=== PATIENT | female | born 1945 | race Hispanic/Latino ===

== ENCOUNTER 2017-03-09 03:14 | Emergency (ER) | payer MEDICARE, MEDICAID ==
[2017-03-09 03:30] VITALS: PULSE 76; RESP 18; TEMP 98; O2SAT 99
--- NOTE | 2017-03-09 03:59 | ED PDOC ---
HPI: General Adult Time Seen by Provider: 03/09/17 03:36 Chief Complaint (Nursing): Cough, Cold, Congestion History Per: Patient Additional Complaint(s): Pt. states for > 1 week she's had a cough productive of green sputum initially which has since become dry. Also reports having nasal congestion initially which is no longer present. Pt. states she believes she became sick as she slept close an air conditioner at her [facility] > 1 week ago. Denies sick contacts , recent travel, hemoptysis, chest pain, fever, palpitations. Past Medical History Reviewed: Historical Data, Nursing Documentation, Vital Signs Vital Signs: Last Vital Signs Temp 98.0 F 03/09/17 03:23 Pulse 76 03/09/17 03:23 Resp 18 03/09/17 03:23 BP 172/89 H 03/09/17 04:27 Pulse Ox 99 03/09/17 04:00 - Medical History PMH: HTN, Malignancy (h/o breast CA), Peripheral Edema (Chronic BLE edema) - Surgical History Other surgeries: R lumpectomy - Family History Family History: States: Unknown Family Hx - Home Medications Home Medications: Ambulatory Orders Medication Instructions Recorded Ketoconazole 2% Cr [Nizoral] 60 gm TOP BID #0 tube 04/16/14 Furosemide [Lasix] 20 mg PO DAILY #10 tab 07/13/14 Albuterol 0.5% [Albuterol 0.5% 2.5 mg IH Q6H PRN #3 neb 07/16/14 Inhal Shakila (2.5 mg/0.5 ml) UD] Azithromycin [Zithromax Z-Andrews] 250 mg PO DAILY #6 tab 07/16/14 Ibuprofen [Motrin] 600 mg PO Q8 PRN #6 tab 07/16/14 Polymyxin/Trimethoprim Sulfate 1 - 2 drop OS Q4 #1 bottle 08/08/14 [Polytrim Ophth Soln] Clotrimazole 1% Cream [Lotrimin 1% 15 applic EXT DAILY #1 tube 02/07/15 CREAM] Naproxen 375 mg PO Q8 PRN #21 tab 06/04/15 diaZEpam [Valium] 5 mg PO Q6 PRN #6 tab 06/04/15 Albuterol HFA [Ventolin HFA 90 2 puff IH Q4 PRN #1 unit 10/13/16 mcg/actuation (8 g)] Azithromycin [Zithromax] 250 mg PO DAILY #6 tab 10/13/16 Methylprednisolone [Medrol Dose 4 mg PO DAILY #1 packet 10/13/16 Pack (21 tabs)] Promethazine HCl/Codeine 5 ml PO TID PRN #30 syrup 10/13/16 [Prometh-Codein 6.25-10 mg/5 ml] Azithromycin [Zithromax] 250 mg PO DAILY #6 tab 03/09/17 Benzonatate [Tessalon Perle] 100 mg PO Q8 PRN #30 capsule 03/09/17 - Allergies Allergies/Adverse Reactions: Allergies Allergy/AdvReac Type Severity Reaction Status Date / Time EGG Allergy RASH Verified 10/13/16 17:04 latex Allergy RASH Verified 10/13/16 17:04 flu vaccine Allergy RASH Uncoded 10/13/16 17:04 Review of Systems ROS Statement: Except As Marked, All Systems Reviewed And Found Negative Respiratory: Positive for: Cough Physical Exam - Reviewed Nursing Documentation Reviewed: Yes Vital Signs Reviewed: Yes - Physical Exam Appears: Positive for: Well, Non-toxic, No Acute Distress Head Exam: Positive for: ATRAUMATIC, NORMAL INSPECTION, NORMOCEPHALIC Skin: Positive for: Normal Color, Warm. Negative for: Rash Eye Exam: Positive for: EOMI, Normal appearance, PERRL ENT: Positive for: Normal ENT Inspection Neck: Positive for: Normal, Painless ROM Cardiovascular/Chest: Positive for: Regular Rate, Rhythm Respiratory: Positive for: CNT, Normal Breath Sounds Gastrointestinal/Abdominal: Positive for: Normal Exam, Bowel Sounds, Soft. Negative for: Tenderness Back: Positive for: Normal Inspection Extremity: Positive for: Normal ROM Neurologic/Psych: Positive for: Alert, Oriented - ECG O2 Sat by Pulse Oximetry: 99 - Radiology X-Ray: Interpreted by Me (CXR) X-Ray Interpretation: No Acute Disease Disposition - Clinical Impression Clinical Impression: Acute bronchitis - Patient ED Disposition Is Patient to be Admitted: No - Disposition Referrals: [facility] [Outside] Disposition: Routine/Home Disposition Time: 04:28 Condition: STABLE Prescriptions: Azithromycin [Zithromax] 250 mg PO DAILY #6 tab Benzonatate [Tessalon Perle] 100 mg PO Q8 PRN #30 capsule PRN Reason: Cough Instructions: Acute Bronchitis (ED) Print Language: BELARUSIAN
[2017-03-09 04:29] VITALS: BP 172/89
--- NOTE | 2017-03-09 09:24 | RAD ---
HISTORY: cough COMPARISON: Chest x-ray performed 10/13/16 TECHNIQUE: Chest PA and lateral FINDINGS: LUNGS: No focal consolidation. Nodular densities are again seen projecting over the left upper lobe and right upper lobe. Additional 11 mm nodular density projects over the left lower lobe, possibly nipple shadow. Please note that chest x-ray has limited sensitivity for the detection of pulmonary masses. PLEURA: No significant pleural effusion identified. No definite pneumothorax . CARDIOVASCULAR: The cardiomediastinal silhouette appears within normal limits of size. OSSEOUS STRUCTURES: Osseous demineralization. Mild degenerative changes. VISUALIZED UPPER ABDOMEN: Unremarkable. OTHER FINDINGS: Postsurgical changes, right breast. IMPRESSION: Bilateral nodular densities are re- identified involving the upper lobes. Additional 11 mm nodular density projects over the left lower lobe, possibly nipple shadow. CT of the chest is recommended for further evaluation if not already performed. This study has been marked for PA review.
== END 2017-03-09 04:36 | disposition home or self-care (01) ==
LOC: H.ER 03:14
DX: J20.9 Acute bronchitis, unspecified (principal); I10 Essential (primary) hypertension; Z85.3 Personal history of malignant neoplasm of breast

== ENCOUNTER 2017-04-05 15:57 | Emergency (ER) | payer MEDICARE, MEDICAID ==
[2017-04-05 16:04] VITALS: BP 159/84; PULSE 86; RESP 20; TEMP 97; O2SAT 98
--- NOTE | 2017-04-05 16:16 | ED PDOC ---
Upper Extremity Pain/Injury Time Seen by Provider: 04/05/17 16:04 Chief Complaint (Nursing): Upper Extremity Problem/Injury Chief Complaint (Provider): right arm pain History Per: Patient History/Exam Limitations: no limitations Onset/Duration Of Symptoms: Days (x2 weeks) Current Symptoms Are (Timing): Still Present Additional Complaint(s): Maryanne Cramer is a 71 year old right hand dominant female who presents to the emergency department with a complaint of dull right arm pain status post bumping into metal door 2 weeks ago. Patient did not seek medical attention at time of incident and declines pain medications in ED today. She is able to bend elbow and wrist but has pain when doing so. She rates current pain as 5/ 10. PMD: Edilberto Son MD Past Medical History Reviewed: Historical Data, Nursing Documentation, Vital Signs Vital Signs: Last Vital Signs Temp 97 F L 04/05/17 16:02 Pulse 86 04/05/17 16:02 Resp 20 04/05/17 16:02 BP 159/84 H 04/05/17 16:02 Pulse Ox 98 04/05/17 16:02 - Medical History PMH: HTN, Malignancy (h/o breast CA) - Surgical History Other surgeries: right lumpectomy, D&C - Family History Family History: States: No Known Family Hx - Living Arrangements Living Arrangements: Alone - Social History Current smoker - smoking cessation education provided: No Alcohol: None Drugs: Denies - Home Medications Home Medications: Ambulatory Orders Medication Instructions Recorded Ketoconazole 2% Cr [Nizoral] 60 gm TOP BID #0 tube 04/16/14 Furosemide [Lasix] 20 mg PO DAILY #10 tab 07/13/14 Albuterol 0.5% [Albuterol 0.5% 2.5 mg IH Q6H PRN #3 neb 07/16/14 Inhal Shakila (2.5 mg/0.5 ml) UD] Azithromycin [Zithromax Z-Andrews] 250 mg PO DAILY #6 tab 07/16/14 Ibuprofen [Motrin] 600 mg PO Q8 PRN #6 tab 07/16/14 Polymyxin/Trimethoprim Sulfate 1 - 2 drop OS Q4 #1 bottle 08/08/14 [Polytrim Ophth Soln] Clotrimazole 1% Cream [Lotrimin 1% 15 applic EXT DAILY #1 tube 02/07/15 CREAM] Naproxen 375 mg PO Q8 PRN #21 tab 06/04/15 diaZEpam [Valium] 5 mg PO Q6 PRN #6 tab 06/04/15 Albuterol HFA [Ventolin HFA 90 2 puff IH Q4 PRN #1 unit 10/13/16 mcg/actuation (8 g)] Azithromycin [Zithromax] 250 mg PO DAILY #6 tab 10/13/16 Methylprednisolone [Medrol Dose 4 mg PO DAILY #1 packet 10/13/16 Pack (21 tabs)] Promethazine HCl/Codeine 5 ml PO TID PRN #30 syrup 10/13/16 [Prometh-Codein 6.25-10 mg/5 ml] Azithromycin [Zithromax] 250 mg PO DAILY #6 tab 03/09/17 Benzonatate [Tessalon Perle] 100 mg PO Q8 PRN #30 capsule 03/09/17 - Allergies Allergies/Adverse Reactions: Allergies Allergy/AdvReac Type Severity Reaction Status Date / Time EGG Allergy RASH Verified 04/05/17 16:01 latex Allergy RASH Verified 04/05/17 16:01 flu vaccine Allergy RASH Uncoded 04/05/17 16:01 Review of Systems ROS Statement: Except As Marked, All Systems Reviewed And Found Negative Cardiovascular: Negative for: Chest Pain Musculoskeletal: Positive for: Arm Pain (right arm pain s/p injury 2 weeks ago) Neurological: Negative for: Headache, Dizziness Physical Exam - Reviewed Nursing Documentation Reviewed: Yes Vital Signs Reviewed: Yes - Physical Exam Appears: Positive for: Well, Non-toxic, No Acute Distress Skin: Positive for: Normal Color. Negative for: Rash Eye Exam: Positive for: Normal appearance, EOMI, PERRL Neck: Positive for: Painless ROM. Negative for: Pain On Movement Of Neck Cardiovascular/Chest: Positive for: Regular Rate, Rhythm Respiratory: Positive for: Normal Breath Sounds. Negative for: Respiratory Distress Extremity: Positive for: Other (Tenderness to right elbow and wrist with full rom of both, strong right hand barrel bander, full rom right shoulder, normal distal sensation) Neurologic/Psych: Positive for: Alert, Oriented - ECG O2 Sat by Pulse Oximetry: 98 (RA) Pulse Ox Interpretation: Normal - Other Rad right elbow and wrist x-ray X-Ray: Interpreted by Me, Viewed By Me X-Ray Interpretation: no fx, no dis Medical Decision Making Medical Decision Making: Initial Impression: Right arm injury Initial Plan: * Xray elbow (right) * Xray wrist (right) Pain meds declined. X-ray is negative. Advised tylenol prn pain. Patient was referred to clinic for follow up. Scribe Attestation: Documented by Isa Ford, acting as a scribe for Theresa Soria PA-C. Provider Scribe Attestation: All medical record entries made by the Scribe were at my direction and personally dictated by me. I have reviewed the chart and agree that the record accurately reflects my personal performance of the history, physical exam, medical decision making, and the department course for this patient. I have also personally directed, reviewed, and agree with the discharge instructions and disposition. Disposition - Clinical Impression Clinical Impression: Arm contusion - Patient ED Disposition Is Patient to be Admitted: No Counseled Patient/Family Regarding: Studies Performed, Diagnosis, Need For Followup - Disposition Referrals: [facility] [Outside] Disposition: Routine/Home Disposition Time: 17:00 Condition: STABLE Additional Instructions: Tylenol as needed for pain. Follow up in 2-3 days with clinic. Instructions: Arm Pain (ED), Contusion in Adults (ED) Forms: [employer] (Azeri)
--- NOTE | 2017-04-05 20:13 | RAD ---
HISTORY: trauma COMPARISON: No prior FINDINGS: BONES: Normal. No fracture. JOINTS: Normal. No osteoarthritis. SOFT TISSUE: Normal. OTHER FINDINGS: None . IMPRESSION: Normal Bone Xray.
--- NOTE | 2017-04-08 11:36 | RAD ---
PROCEDURE: Right wrist dated 04/05/2017 HISTORY: Trauma COMPARISON: None. FINDINGS: BONES: No evidence of acute displaced fracture. . The osseous structures intact. No cortical destructive changes. JOINTS: No dislocation. Joint spaces preserved. SOFT TISSUES: Normal. OTHER FINDINGS: None. IMPRESSION: No evidence of acute displaced fracture nor dislocation. If symptoms persist or occult fracture suspected clinically recommend repeat radiographs in 5-10 days as most fractures should become radiographically evident in this timeframe. Alternately, MRI could be performed if pain persists.
== END 2017-04-05 17:15 | disposition home or self-care (01) ==
LOC: H.ER 15:57
DX: S40.021A Contusion of right upper arm, initial encounter (principal); W22.8XXA Striking against or struck by other objects, initial encounter; I10 Essential (primary) hypertension; Z85.3 Personal history of malignant neoplasm of breast

== ENCOUNTER 2017-07-15 03:20 | Emergency (ER) | payer MEDICARE, MEDICAID ==
[2017-07-15 03:42] VITALS: BP 145/84; PULSE 89; RESP 17; TEMP 98; O2SAT 97
[2017-07-15] MEDS: Albuterol 0.083% Inhal Sol (2.5 mg/3 mL) UD INH ONE (04:45)
--- NOTE | 2017-07-15 04:51 | ED PDOC ---
HPI: General Adult Time Seen by Provider: 07/15/17 03:40 Chief Complaint (Nursing): Flu-like Symptoms Chief Complaint (Provider): Cough, History Per: Patient History/Exam Limitations: no limitations Onset/Duration Of Symptoms: Days (2 days ago) Current Symptoms Are (Timing): Still Present Additional Complaint(s): Maryanne Cramer is a 71 y/o homeless female with a past medical history of hypertension and chronic bilateral edema, who presents to the ED complaining of a cough, right eye pain and redness, that began 2 days ago. Patient denies of fever, vomiting and diarrhea. Past Medical History Reviewed: Historical Data, Nursing Documentation, Vital Signs Vital Signs: Last Vital Signs Temp 98.0 F 07/15/17 03:39 Pulse 89 07/15/17 03:39 Resp 17 07/15/17 03:39 BP 145/84 07/15/17 03:39 Pulse Ox 97 07/15/17 05:12 - Medical History PMH: HTN, Malignancy (h/o breast CA), Peripheral Edema (Chronic BLE edema) - Surgical History Surgical History: No Surg Hx - Family History Family History: States: Unknown Family Hx - Living Arrangements Living Arrangements: Alone - Home Medications Home Medications: Ambulatory Orders Medication Instructions Recorded Ketoconazole 2% Cr [Nizoral] 60 gm TOP BID #0 tube 04/16/14 Furosemide [Lasix] 20 mg PO DAILY #10 tab 07/13/14 Albuterol 0.5% [Albuterol 0.5% 2.5 mg IH Q6H PRN #3 neb 07/16/14 Inhal Shakila (2.5 mg/0.5 ml) UD] Azithromycin [Zithromax Z-Andrews] 250 mg PO DAILY #6 tab 07/16/14 Ibuprofen [Motrin] 600 mg PO Q8 PRN #6 tab 07/16/14 Polymyxin/Trimethoprim Sulfate 1 - 2 drop OS Q4 #1 bottle 08/08/14 [Polytrim Ophth Soln] Clotrimazole 1% Cream [Lotrimin 1% 15 applic EXT DAILY #1 tube 02/07/15 CREAM] Naproxen 375 mg PO Q8 PRN #21 tab 06/04/15 diaZEpam [Valium] 5 mg PO Q6 PRN #6 tab 06/04/15 Albuterol HFA [Ventolin HFA 90 2 puff IH Q4 PRN #1 unit 10/13/16 mcg/actuation (8 g)] Azithromycin [Zithromax] 250 mg PO DAILY #6 tab 10/13/16 Methylprednisolone [Medrol Dose 4 mg PO DAILY #1 packet 10/13/16 Pack (21 tabs)] Promethazine HCl/Codeine 5 ml PO TID PRN #30 syrup 10/13/16 [Prometh-Codein 6.25-10 mg/5 ml] Azithromycin [Zithromax] 250 mg PO DAILY #6 tab 03/09/17 Benzonatate [Tessalon Perle] 100 mg PO Q8 PRN #30 capsule 03/09/17 Azithromycin [Zithromax] 250 mg PO DAILY #6 tab 07/15/17 Tobramycin 0.3% [Tobrex 0.3% Ophth 1 appl OD QID #1 tube 07/15/17 Oint] - Allergies Allergies/Adverse Reactions: Allergies Allergy/AdvReac Type Severity Reaction Status Date / Time EGG Allergy RASH Verified 04/05/17 16:01 latex Allergy RASH Verified 04/05/17 16:01 flu vaccine Allergy RASH Uncoded 04/05/17 16:01 Review of Systems Constitutional: Negative for: Fever Eyes: Positive for: Pain, Redness, Other (Watery) Respiratory: Positive for: Cough Gastrointestinal: Negative for: Vomiting, Diarrhea Physical Exam - Reviewed Nursing Documentation Reviewed: Yes Vital Signs Reviewed: Yes - Physical Exam Appears: Positive for: Non-toxic, No Acute Distress Head Exam: Positive for: ATRAUMATIC, NORMOCEPHALIC Skin: Positive for: Normal Color, Warm Eye Exam: Positive for: EOMI, PERRL, Conjunctival injection (right eye), Other ( right eye erythema) Neck: Positive for: Normal, Supple Cardiovascular/Chest: Positive for: Regular Rate, Rhythm. Negative for: Murmur Respiratory: Positive for: Normal Breath Sounds. Negative for: Respiratory Distress Gastrointestinal/Abdominal: Positive for: Normal Exam, Soft. Negative for: Tenderness Back: Positive for: Normal Inspection Extremity: Positive for: Other (chronic lower extremity edema) Neurologic/Psych: Positive for: Alert, Oriented. Negative for: Motor/Sensory Deficits - ECG O2 Sat by Pulse Oximetry: 97 (RA) Pulse Ox Interpretation: Normal Medical Decision Making Medical Decision Making: Time: 04:36 Impression: Conjunctivitis in right eye with cough Plan: --albuterol 2.5 mg INH --Peak Flow Pre/Post TX -- -- Reassess: --Patient is feeling better and going to be sent home with prescription antibiotics and cream to combat the Conjunctivitis in the right eye. Scribe Attestation: Documented by Kevon Brito, acting as a scribe for Sheng Brown MD. Provider Scribe Attestation: All medical record entries made by the Scribe were at my direction and personally dictated by me. I have reviewed the chart and agree that the record accurately reflects my personal performance of the history, physical exam, medical decision making, and the department course for this patient. I have also personally directed, reviewed, and agree with the discharge instructions and disposition. Disposition - Clinical Impression Clinical Impression: Viral infection, Conjunctivitis - Patient ED Disposition Is Patient to be Admitted: No Counseled Patient/Family Regarding: Studies Performed, Diagnosis, Need For Followup - Disposition Disposition: Routine/Home Disposition Time: 04:15 Condition: IMPROVED Additional Instructions: follow up with your primary doctor in 1-2 days return to the ED with any worsening or concerning symptoms Prescriptions: Azithromycin [Zithromax] 250 mg PO DAILY #6 tab Tobramycin 0.3% [Tobrex 0.3% Ophth Oint] 1 appl OD QID #1 tube Instructions: Conjunctivitis (ED) Forms: [employer] (Japanese)
== END 2017-07-15 05:18 | disposition home or self-care (01) ==
LOC: H.ER 03:20
DX: B34.9 Viral infection, unspecified (principal); H10.9 Unspecified conjunctivitis; I10 Essential (primary) hypertension; Z59.0 Homelessness; Z85.3 Personal history of malignant neoplasm of breast

== ENCOUNTER 2018-09-03 04:45 | Emergency (ER) | payer MEDICARE, MEDICAID ==
--- NOTE | 2018-09-03 05:47 | ED PDOC ---
HPI: General Adult Time Seen by Provider: 09/03/18 04:51 Chief Complaint (Nursing): Medical Clearance Chief Complaint (Provider): Medical Clearance History Per: Patient History/Exam Limitations: no limitations Additional Complaint(s): 73 y/o female with history of hypertension presents to the ED because she is cold. Patient is homeless and was made to register when she would not vacate ED waitiong room. She has no active medical complaints. Patient is requesting refill of her blood pressure medication but is unsure of the name of the medicine. Past Medical History Reviewed: Historical Data, Nursing Documentation, Vital Signs Vital Signs: Last Vital Signs Temp 97.6 F 09/03/18 04:48 Pulse 91 H 09/03/18 04:48 Resp 17 09/03/18 04:48 BP 188/112 H 09/03/18 05:40 Pulse Ox 95 09/03/18 04:48 - Medical History PMH: HTN, Malignancy (h/o breast CA), Peripheral Edema (Chronic BLE edema) - Surgical History Surgical History: No Surg Hx - Family History Family History: States: Unknown Family Hx - Home Medications Home Medications: Ambulatory Orders Medication Instructions Recorded RX: Ketoconazole 2% Cr [Nizoral] 60 gm TOP BID #0 tube 04/16/14 Furosemide [Lasix] 20 mg PO DAILY #10 tab 07/13/14 Albuterol 0.5% [Albuterol 0.5% 2.5 mg IH Q6H PRN #3 neb 07/16/14 Inhal Shakila (2.5 mg/0.5 ml) UD] Azithromycin [Zithromax Z-Andrews] 250 mg PO DAILY #6 tab 07/16/14 Ibuprofen [Motrin] 600 mg PO Q8 PRN #6 tab 07/16/14 Polymyxin/Trimethoprim Sulfate 1 - 2 drop OS Q4 #1 bottle 08/08/14 [Polytrim Ophth Soln] RX: Clotrimazole 1% Cream 15 applic EXT DAILY #1 tube 02/07/15 [Lotrimin 1% CREAM] RX: Naproxen 375 mg PO Q8 PRN #21 tab 06/04/15 diaZEpam [Valium] 5 mg PO Q6 PRN #6 tab 06/04/15 Albuterol HFA [Ventolin HFA 90 2 puff IH Q4 PRN #1 unit 10/13/16 mcg/actuation (8 g)] Methylprednisolone [Medrol Dose 4 mg PO DAILY #1 packet 10/13/16 Pack (21 tabs)] Promethazine HCl/Codeine 5 ml PO TID PRN #30 syrup 10/13/16 [Prometh-Codein 6.25-10 mg/5 ml] RX: Azithromycin [Zithromax] 250 mg PO DAILY #6 tab 10/13/16 Azithromycin [Zithromax] 250 mg PO DAILY #6 tab 03/09/17 Benzonatate [Tessalon Perle] 100 mg PO Q8 PRN #30 capsule 03/09/17 Azithromycin [Zithromax] 250 mg PO DAILY #6 tab 07/15/17 RX: Tobramycin 0.3% [Tobrex 0.3% 1 appl OD QID #1 tube 07/15/17 Ophth Oint] Furosemide [Lasix] 20 mg PO QAM #7 tab 09/03/18 - Allergies Allergies/Adverse Reactions: Allergies Allergy/AdvReac Type Severity Reaction Status Date / Time EGG Allergy RASH Verified 04/05/17 16:01 latex Allergy RASH Verified 04/05/17 16:01 flu vaccine Allergy RASH Uncoded 04/05/17 16:01 Review of Systems ROS Statement: Except As Marked, All Systems Reviewed And Found Negative Physical Exam - Reviewed Nursing Documentation Reviewed: Yes Vital Signs Reviewed: Yes - Physical Exam Appears: Positive for: Well, Non-toxic, No Acute Distress Head Exam: Positive for: ATRAUMATIC, NORMOCEPHALIC Skin: Positive for: Normal Color, Warm, DRY Eye Exam: Positive for: EOMI, Normal appearance, PERRL Cardiovascular/Chest: Positive for: Regular Rate, Rhythm. Negative for: Murmur Respiratory: Positive for: Normal Breath Sounds. Negative for: Respiratory Distress Gastrointestinal/Abdominal: Positive for: Normal Exam, Soft. Negative for: Tenderness Back: Positive for: Normal Inspection Extremity: Positive for: Normal ROM. Negative for: Pedal Edema, Deformity Neurologic/Psych: Positive for: Alert, Oriented. Negative for: Motor/Sensory Deficits - ECG O2 Sat by Pulse Oximetry: 95 (RA) Pulse Ox Interpretation: Normal Medical Decision Making Medical Decision Making: Time: 04:51 Initial Impression: 73 y/o homeless female with hypertension and malingering Initial Plan: Lasix 20mg po x 1 ordered Patient declining any medication and states she prefers to go to [facility] for her medication 05:40 Diagnosis: Hypertension, Malingering D/O. Scribe Attestation: Documented by Junaid Arreaga acting as a scribe for John Rome MD. Provider Scribe Attestation: All medical record entries made by the Scribe were at my direction and person ally dictated by me. I have reviewed the chart and agree that the record accurately reflects my personal performance of the history, physical exam, medical decision making, and the department course for this patient. I have also personally directed, reviewed, and agree with the discharge instructions and disposition. Disposition - Clinical Impression Clinical Impression: Hypertension, Malingering - Patient ED Disposition Is Patient to be Admitted: No - Disposition Disposition: Routine/Home Disposition Time: 05:40 Condition: STABLE Additional Instructions: JOHN FARIA, thank you for letting us take care of you today. Your provider was oJhn Rome MD and you were treated for COLD. The emergency medical care you received today was directed at your acute symptoms. If you were prescribed any medication, please fill it and take as directed. It may take several days for your symptoms to resolve. Return to the Emergency Department if your symptoms worsen, do not improve, or if you have any other problems. Please contact your doctor or call one of the physicians/clinics you have been referred to that are listed on the Patient Visit Information form that is included in your discharge packet. Bring any paperwork you were given at discharge with you along with any medications you are taking to your follow up visit. Our treatment cannot replace ongoing medical care by a primary care provider outside of the emergency department. Thank you for allowing the [facility] team to be part of your care today. If you had an X-Ray or CT scan: A Radiologist will review the ED reading if any change in treatment is needed we will contact you. If you had a blood, urine, or wound culture: It will take several days for the results, if any change in treatment is needed we will contact you. If you had an STI test: It will take 48 hours for the results. Please call after 1 week if you have not heard back. Prescriptions: Furosemide [Lasix] 20 mg PO QAM #7 tab Instructions: High Blood Pressure in Adults, General (DC) Forms: [employer] (Hebrew)
[2018-09-03 07:03] VITALS: BP 174/93; PULSE 84; RESP 16; TEMP 97.8
[2018-09-03 22:18] VITALS: O2SAT 95
== END 2018-09-03 07:01 | disposition home or self-care (01) ==
LOC: H.ER 04:45
DX: Z76.5 Malingerer [conscious simulation] (principal); I10 Essential (primary) hypertension; Z59.0 Homelessness

== ENCOUNTER 2018-09-06 05:29 | Emergency (ER) | payer MEDICARE, MEDICAID ==
[2018-09-06 07:13] VITALS: O2SAT 95
--- NOTE | 2018-09-06 07:23 | ED PDOC ---
Upper Extremity Pain/Injury Time Seen by Provider: 09/06/18 07:12 Chief Complaint (Nursing): Upper Extremity Problem/Injury Chief Complaint (Provider): Upper Extremity Problem/Injury History Per: Patient History/Exam Limitations: no limitations Onset/Duration Of Symptoms: Days (x2) Current Symptoms Are (Timing): Still Present Additional Complaint(s): 73 year old female with pmHx of HTN, presents to ED with right-sided shoulder pain for 2 days. She denies any injury or trauma to affected site. Patient is undomiciled and states pain is due to "being out in the cold too much". PCP: none provided Past Medical History Reviewed: Historical Data, Nursing Documentation, Vital Signs Vital Signs: Last Vital Signs Temp 97.7 F 09/06/18 07:13 Pulse 80 09/06/18 07:13 Resp 20 09/06/18 07:13 BP 174/99 H 09/06/18 07:13 Pulse Ox 95 09/06/18 07:13 - Medical History PMH: HTN, Malignancy (h/o breast CA), Peripheral Edema (Chronic BLE edema) - Family History Family History: States: Unknown Family Hx - Home Medications Home Medications: Ambulatory Orders Medication Instructions Recorded Ketoconazole 2% Cr [Nizoral] 60 gm TOP BID #0 tube 04/16/14 Furosemide [Lasix] 20 mg PO DAILY #10 tab 07/13/14 Albuterol 0.5% [Albuterol 0.5% 2.5 mg IH Q6H PRN #3 neb 07/16/14 Inhal Shakila (2.5 mg/0.5 ml) UD] Azithromycin [Zithromax Z-Andrews] 250 mg PO DAILY #6 tab 07/16/14 Ibuprofen [Motrin] 600 mg PO Q8 PRN #6 tab 07/16/14 Polymyxin/Trimethoprim Sulfate 1 - 2 drop OS Q4 #1 bottle 08/08/14 [Polytrim Ophth Soln] Clotrimazole 1% Cream [Lotrimin 1% 15 applic EXT DAILY #1 tube 02/07/15 CREAM] Naproxen 375 mg PO Q8 PRN #21 tab 06/04/15 diaZEpam [Valium] 5 mg PO Q6 PRN #6 tab 06/04/15 Albuterol HFA [Ventolin HFA 90 2 puff IH Q4 PRN #1 unit 10/13/16 mcg/actuation (8 g)] Azithromycin [Zithromax] 250 mg PO DAILY #6 tab 10/13/16 Methylprednisolone [Medrol Dose 4 mg PO DAILY #1 packet 10/13/16 Pack (21 tabs)] Promethazine HCl/Codeine 5 ml PO TID PRN #30 syrup 10/13/16 [Prometh-Codein 6.25-10 mg/5 ml] Azithromycin [Zithromax] 250 mg PO DAILY #6 tab 03/09/17 Benzonatate [Tessalon Perle] 100 mg PO Q8 PRN #30 capsule 03/09/17 Azithromycin [Zithromax] 250 mg PO DAILY #6 tab 07/15/17 Tobramycin 0.3% [Tobrex 0.3% Ophth 1 appl OD QID #1 tube 07/15/17 Oint] Furosemide [Lasix] 20 mg PO QAM #7 tab 09/03/18 Naproxen [Naprosyn] 500 mg PO Q12H #20 tab 09/06/18 - Allergies Allergies/Adverse Reactions: Allergies Allergy/AdvReac Type Severity Reaction Status Date / Time EGG Allergy RASH Verified 04/05/17 16:01 latex Allergy RASH Verified 04/05/17 16:01 flu vaccine Allergy RASH Uncoded 04/05/17 16:01 Review of Systems ROS Statement: Except As Marked, All Systems Reviewed And Found Negative Musculoskeletal: Positive for: Shoulder Pain (right sided) Physical Exam - Reviewed Nursing Documentation Reviewed: Yes Vital Signs Reviewed: Yes - Physical Exam Appears: Positive for: Non-toxic, No Acute Distress Pulses-Radial (R): 2+ Extremity: Positive for: Normal ROM (right shoulder and elbow), Capillary Refill (< 2 second to right arm). Negative for: Tenderness (right shoulder), Deformity (right shoulder) Neurologic/Psych: Positive for: Alert, Oriented. Negative for: Motor/Sensory Deficits - ECG O2 Sat by Pulse Oximetry: 95 (RA) Pulse Ox Interpretation: Normal Medical Decision Making Medical Decision Making: Time: 719 --Patient declines XR of right shoulder when offered by provider. Scribe Attestation: Documented by Isa Ford, acting as a scribe for Андрей Coronado MD. Provider Scribe Attestation: All medical record entries made by the Scribe were at my direction and personally dictated by me. I have reviewed the chart and agree that the record accurately reflects my personal performance of the history, physical exam, medical decision making, and the department course for this patient. I have also personally directed, reviewed, and agree with the discharge instructions and disposition. Disposition - Clinical Impression Clinical Impression: Shoulder sprain - Patient ED Disposition Is Patient to be Admitted: No Counseled Patient/Family Regarding: Diagnosis, Need For Followup - Disposition Referrals: [facility] [Outside] Disposition: Routine/Home Disposition Time: 07:35 Condition: FAIR Prescriptions: Naproxen [Naprosyn] 500 mg PO Q12H #20 tab Instructions: Shoulder Sprain Forms: [employer] (Guinean)
[2018-09-06 11:18] VITALS: BP 112/83; PULSE 73; RESP 16; TEMP 98.3
== END 2018-09-06 11:18 | disposition home or self-care (01) ==
LOC: H.ER 05:29
DX: S43.401A Unspecified sprain of right shoulder joint, initial encounter (principal); Y92.89 Other specified places as the place of occurrence of the external cause; I10 Essential (primary) hypertension; Z85.3 Personal history of malignant neoplasm of breast

== ENCOUNTER 2018-09-07 05:22 | Emergency (ER) | payer MEDICARE, MEDICAID ==
[2018-09-07 05:53] VITALS: TEMP 98.9
--- NOTE | 2018-09-07 05:59 | ED PDOC ---
History of Present Illness History of Present Illness: Patient is a homeless 73 year old with history of HTN, cancer who was sitting in the waiting room for 10 hours and when asked to leave by security, she decided to sign in because she felt it was too cold to go outside and states she would get short of breath. No fevers, cough, sore throat. PMD: [facility] in [facility] HPI: Influenza Time Seen by Provider: 09/07/18 05:25 Chief Complaint: Cough, Cold, Congestion History Per: Patient Exam Limitations: no limitations Have you had recent travel within the past 21 days to any of: No Onset/Duration Of Symptoms: Mins Past Medical History Vital Signs: Last Vital Signs Temp 98.9 F 09/07/18 05:48 Pulse 89 09/07/18 05:48 Resp 18 09/07/18 05:48 BP 177/98 H 09/07/18 05:48 Pulse Ox 98 09/07/18 05:48 - Medical History PMH: HTN, Malignancy, Peripheral Edema (Chronic BLE edema) - Family History Family History: States: Unknown Family Hx - Home Medications Home Medications: Ambulatory Orders Medication Instructions Recorded Ketoconazole 2% Cr [Nizoral] 60 gm TOP BID #0 tube 04/16/14 Furosemide [Lasix] 20 mg PO DAILY #10 tab 07/13/14 Albuterol 0.5% [Albuterol 0.5% 2.5 mg IH Q6H PRN #3 neb 07/16/14 Inhal Shakila (2.5 mg/0.5 ml) UD] Azithromycin [Zithromax Z-Andrews] 250 mg PO DAILY #6 tab 07/16/14 Ibuprofen [Motrin] 600 mg PO Q8 PRN #6 tab 07/16/14 Polymyxin/Trimethoprim Sulfate 1 - 2 drop OS Q4 #1 bottle 08/08/14 [Polytrim Ophth Soln] Clotrimazole 1% Cream [Lotrimin 1% 15 applic EXT DAILY #1 tube 02/07/15 CREAM] Naproxen 375 mg PO Q8 PRN #21 tab 06/04/15 diaZEpam [Valium] 5 mg PO Q6 PRN #6 tab 06/04/15 Albuterol HFA [Ventolin HFA 90 2 puff IH Q4 PRN #1 unit 10/13/16 mcg/actuation (8 g)] Azithromycin [Zithromax] 250 mg PO DAILY #6 tab 10/13/16 Methylprednisolone [Medrol Dose 4 mg PO DAILY #1 packet 10/13/16 Pack (21 tabs)] Promethazine HCl/Codeine 5 ml PO TID PRN #30 syrup 10/13/16 [Prometh-Codein 6.25-10 mg/5 ml] Azithromycin [Zithromax] 250 mg PO DAILY #6 tab 03/09/17 Benzonatate [Tessalon Perle] 100 mg PO Q8 PRN #30 capsule 03/09/17 Azithromycin [Zithromax] 250 mg PO DAILY #6 tab 07/15/17 Tobramycin 0.3% [Tobrex 0.3% Ophth 1 appl OD QID #1 tube 07/15/17 Oint] Furosemide [Lasix] 20 mg PO QAM #7 tab 09/03/18 Naproxen [Naprosyn] 500 mg PO Q12H #20 tab 09/06/18 Albuterol Sulfate [Ventolin Hfa] 1 puff IH Q4 PRN #1 ml 09/07/18 - Allergies Allergies/Adverse Reactions: Allergies Allergy/AdvReac Type Severity Reaction Status Date / Time EGG Allergy RASH Verified 04/05/17 16:01 latex Allergy RASH Verified 04/05/17 16:01 flu vaccine Allergy RASH Uncoded 04/05/17 16:01 Review of Systems ROS Statement: Except As Marked, All Systems Reviewed And Found Negative Respiratory: Positive for: Shortness of Breath Physical Exam - Reviewed Nursing Documentation Reviewed: Yes Vital Signs Reviewed: Yes - Physical Exam Appears: Positive for: Well, Non-toxic, No Acute Distress Head Exam: Positive for: ATRAUMATIC, NORMAL INSPECTION, NORMOCEPHALIC Skin: Positive for: Normal Color, Warm, DRY Eye Exam: Positive for: EOMI, Normal appearance, PERRL ENT: Positive for: Normal ENT Inspection Neck: Positive for: Normal, Painless ROM Cardiovascular/Chest: Positive for: Regular Rate, Rhythm Respiratory: Positive for: CNT, Normal Breath Sounds Gastrointestinal/Abdominal: Positive for: Normal Exam, Soft Back: Positive for: Normal Inspection Extremity: Positive for: Normal ROM Neurologic/Psych: Positive for: Alert, Oriented Medical Decision Making Medical Decision Making: Patient is breathing normally, saturating 98% on RA, well appearing Will prescribe ventolin inhaler for symptomatic relief Well appearing upon discharge - ECG O2 Sat by Pulse Oximetry: 98 Disposition - Clinical Impression Clinical Impression: Shortness of breath - Patient ED Disposition Is Patient to be Admitted: No - Disposition Referrals: [facility] [Outside] Disposition: Routine/Home Disposition Time: 06:00 Condition: STABLE Prescriptions: Albuterol Sulfate [Ventolin Hfa] 1 puff IH Q4 PRN #1 ml PRN Reason: Wheezing Instructions: Shortness of Breath (Dyspnea) (DC)
[2018-09-07 06:24] VITALS: BP 150/88; PULSE 87; RESP 17; O2SAT 99
== END 2018-09-07 06:18 | disposition home or self-care (01) ==
LOC: H.ER 05:22
DX: R06.02 Shortness of breath (principal)

== ENCOUNTER 2018-09-08 00:16 | Emergency (ER) | payer MEDICARE, MEDICAID ==
[2018-09-08 00:38] VITALS: O2SAT 95
--- NOTE | 2018-09-08 01:06 | ED PDOC ---
HPI: SOB/CHF/COPD Time Seen by Provider: 09/08/18 00:51 Chief Complaint (Nursing): Shortness Of Breath Chief Complaint (Provider): Shortness of Breath History Per: Patient History/Exam Limitations: no limitations Onset/Duration Of Symptoms: Days (>365), Persistent Current Symptoms Are (Timing): Constant Quality: Squeezing Exacerbating Factor(s): Laying Flat Severity: Moderate Recently: Seen In ED - Risk Factors PE Risk Factors: Pos: Active Cancer Past Medical History Reviewed: Historical Data, Nursing Documentation, Vital Signs Vital Signs: Last Vital Signs Temp 97.7 F 09/08/18 00:27 Pulse 94 H 09/08/18 00:27 Resp 15 09/08/18 00:36 BP 220/92 H 09/08/18 00:27 Pulse Ox 95 09/08/18 00:36 - Medical History PMH: HTN, Malignancy, Peripheral Edema (Chronic BLE edema) - Family History Family History: States: Unknown Family Hx - Home Medications Home Medications: Ambulatory Orders Medication Instructions Recorded Ketoconazole 2% Cr [Nizoral] 60 gm TOP BID #0 tube 04/16/14 Furosemide [Lasix] 20 mg PO DAILY #10 tab 07/13/14 Albuterol 0.5% [Albuterol 0.5% 2.5 mg IH Q6H PRN #3 neb 07/16/14 Inhal Shakila (2.5 mg/0.5 ml) UD] Azithromycin [Zithromax Z-Andrews] 250 mg PO DAILY #6 tab 07/16/14 Ibuprofen [Motrin] 600 mg PO Q8 PRN #6 tab 07/16/14 Polymyxin/Trimethoprim Sulfate 1 - 2 drop OS Q4 #1 bottle 08/08/14 [Polytrim Ophth Soln] Clotrimazole 1% Cream [Lotrimin 1% 15 applic EXT DAILY #1 tube 02/07/15 CREAM] Naproxen 375 mg PO Q8 PRN #21 tab 06/04/15 diaZEpam [Valium] 5 mg PO Q6 PRN #6 tab 06/04/15 Albuterol HFA [Ventolin HFA 90 2 puff IH Q4 PRN #1 unit 10/13/16 mcg/actuation (8 g)] Azithromycin [Zithromax] 250 mg PO DAILY #6 tab 10/13/16 Methylprednisolone [Medrol Dose 4 mg PO DAILY #1 packet 10/13/16 Pack (21 tabs)] Promethazine HCl/Codeine 5 ml PO TID PRN #30 syrup 10/13/16 [Prometh-Codein 6.25-10 mg/5 ml] Azithromycin [Zithromax] 250 mg PO DAILY #6 tab 03/09/17 Benzonatate [Tessalon Perle] 100 mg PO Q8 PRN #30 capsule 03/09/17 Azithromycin [Zithromax] 250 mg PO DAILY #6 tab 07/15/17 Tobramycin 0.3% [Tobrex 0.3% Ophth 1 appl OD QID #1 tube 07/15/17 Oint] Furosemide [Lasix] 20 mg PO QAM #7 tab 09/03/18 Naproxen [Naprosyn] 500 mg PO Q12H #20 tab 09/06/18 Albuterol Sulfate [Ventolin Hfa] 1 puff IH Q4 PRN #1 ml 09/07/18 - Allergies Allergies/Adverse Reactions: Allergies Allergy/AdvReac Type Severity Reaction Status Date / Time EGG Allergy RASH Verified 04/05/17 16:01 latex Allergy RASH Verified 04/05/17 16:01 flu vaccine Allergy RASH Uncoded 04/05/17 16:01 Wells Criteria for PE - Wells Criteria for Pulmonary Embolism Clinical Signs and Symptoms of DVT: Yes P.E is #1 Diagnosis, or Equally Likely: No Heart Rate >100: No Immobilization at least 3 days;Surgery previous 4 weeks: No Previous, objectively diagnosed PE or DVT: No Hemoptysis: No Malignancy w/treatment within 6 months, or palliative: Yes Total Score: 4 Review of Systems ROS Statement: Except As Marked, All Systems Reviewed And Found Negative Respiratory: Positive for: Cough, Shortness of Breath, Pleuritic Pain Physical Exam - Reviewed Nursing Documentation Reviewed: Yes - Physical Exam Appears: Positive for: Well, No Acute Distress, Uncomfortable Head Exam: Positive for: ATRAUMATIC, NORMAL INSPECTION Skin: Positive for: Normal Color, Warm, Dry. Negative for: Diaphoresis, Pallor, Rash Eye Exam: Positive for: Normal appearance, EOMI, PERRL. Negative for: Nystagmus, Periorbital swelling, Periorbital tenderness ENT: Positive for: Normal ENT Inspection Neck: Positive for: Normal, Painless ROM, Supple. Negative for: Decreased ROM Cardiovascular/Chest: Positive for: Regular Rate, Rhythm. Negative for: Murmur, Friction Rub, Irregularly Irregular Respiratory: Positive for: Normal Breath Sounds, Decreased Breath Sounds, Rhonchi. 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 Increased infiltration of the left hilum and the central airways. Interval appearance of moderate left pleural effusion. Passive atelectatic airspace disease of the left lung. Secondary increase in mediastinal shift to the right side. Mild increase in the size of the mediastinal and hilar metastatic lymphadenopathy. Increased bilateral metastatic pulmonary nodules. Interval appearance of metastatic disease of the right ribs. Normal enhancement of the main pulmonary artery and right and left pulmonary arteries. Normal enhancement of the bilateral peripheral pulmonary arteries. There is no demonstrated pulmonary embolism. Normal thoracic aorta and visualized great vessels. There is no demonstrated aortic dissection. Normal heart and pericardium. Normal visualized trachea and bronchi. IMPRESSION: No demonstrated pulmonary embolism or arterial dissection. Disease progression. Pt has follow up with her development administrator/surgeon tomorrow am and later this week Pt has been affirmatively advised of the changes indentified in her CT exam; as well, the pt has been informed of all findings in the CTA and had opportuntity to ask questions; all questions were responded to with the patient. The pt is stable, pulse ox >95 on room air and is in no further need of treatment from this facility. Disposition - Clinical Impression Clinical Impression: Malignancy, Dyspnea, Hypertension - Patient ED Disposition Is Patient to be Admitted: No Doctor Will See Patient In The: Office Counseled Patient/Family Regarding: Studies Performed, Diagnosis, Need For Followup, Rx Given - Disposition Disposition: Routine/Home Disposition Time: 05:16 Condition: STABLE Additional Instructions: Pt will follow up soonest with her development administrator as well as her oncology/surgeon Pt rx clonidine 0.1mg bid for htn Forms: [employer] (Spanish)
[2018-09-08 02:13] LABS: SQUAMOUS EPITHIAL 1 /hpf (0-5); URINE BACTERIA OCC (<OCC); URINE BILIRUBIN NEGATIVE (NEGATIVE); URINE BLOOD SMALL (NEGATIVE); URINE CLARITY CLEAR (Clear); URINE COLOR YELLOW (YELLOW); URINE GLUCOSE (UA) NEG (NEGATIVE); URINE LEUKOCYTE ESTERASE NEG Leu/uL (Negative); URINE PROTEIN NEGATIVE (NEGATIVE); URINE UROBILINOGEN 0.2-1.0 mg/dL (0.2-1.0)
[2018-09-08 02:59] LABS: BASO # 0.1 K/uL (0.0-0.2); BASO % 1.4 % (0.0-2.0); EOS % 0.7 % (0.0-4.0); HEMOGLOBIN 13.1 g/dL (12.0-16.0); LYMPH # 1.2 K/uL (1.0-4.3); LYMPH % 19.2 % (20.0-40.0); MEAN CELL VOLUME 90.5 fl (81.0-99.0); MEAN CORPUSCULAR HEMOGLOBIN 30.3 pg (27.0-31.0); MEAN CORPUSCULAR HGB CONC 33.5 g/dL (33.0-37.0); MEAN PLATELET VOLUME 8.1 fl (7.2-11.7); MONO # 0.6 K/uL (0.0-0.8); MONO % 9.8 % (0.0-10.0); NEUT # 4.3 K/uL (1.8-7.0); NEUT % 68.9 % (50.0-75.0); NRBC % 0.1 % (0.0-0.0); RBC 4.31 Mil/uL (3.80-5.20); WHITE BLOOD COUNT 6.2 K/uL (4.8-10.8)
[2018-09-08] MEDS ORDERED: Iodixanol 320 MG/ML 100 ML BOTTLE IV ONE (03:04)
[2018-09-08] MEDS ORDERED: Sodium Chloride 0.9% 50 ML IV ONE (03:04)
[2018-09-08 03:10] LABS: ALB/GLOB RATIO 1.2 (1.0-2.1); ALBUMIN 4.1 g/dL (3.5-5.0); ALT/SGPT 39 U/L (9-52); AST/SGOT 36 U/L (14-36); BLOOD UREA NITROGEN 14 mg/dl (7-17); CALCIUM 9.5 mg/dL (8.4-10.2); GFR NON-AFRICAN AMERICAN > 60
[2018-09-08 03:50] LABS: PROTHROMBIN TIME 11.8 Seconds (9.8-13.1)
[2018-09-08 03:53] LABS: PARTIAL THROMBOPLASTIN TIME 23.5 Seconds (25.6-37.1)
[2018-09-08 06:24] VITALS: BP 141/73; PULSE 76; RESP 18; TEMP 98.7
--- NOTE | 2018-09-08 16:38 | CT ---
Date of service: 09/08/2018 PROCEDURE: CT Chest with contrast (Pulmonary Angiogram) HISTORY: SOB COMPARISON: 02/07/2018 TECHNIQUE: Axial computed tomography images were obtained of the chest in the pulmonary arterial phase of enhancement. Coronal and sagittal reformatted images were created and reviewed. Intravenous contrast dose: 90 mL Visipaque 320 Radiation dose: Total exam DLP = 357.32 mGy-cm. This CT exam was performed using one or more of the following dose reduction techniques: Automated exposure control, adjustment of the mA and/or kV according to patient size, and/or use of iterative reconstruction technique. FINDINGS: PULMONARY ARTERIES: No evidence of pulmonary embolism. Evaluation of the right lower lobe vessels is somewhat technically limited for evaluation of subsegmental pulmonary artery branches. AORTA: No acute findings. No thoracic aortic aneurysm. No aortic atherosclerotic calcification or mural plaque present. LUNGS: Almost complete atelectasis of the left lung with small remaining aerated portion of the left upper lobe. No right-sided pulmonary infiltrate. Numerous rounded metastases throughout the right lung, grossly unchanged from 02/07/2018. The largest metastasis measures approximately 2.6 cm in greatest dimension, in the superior segment right lower lobe. PLEURAL SPACES: Massive left pleural effusion. No right pleural effusion. No pneumothorax. Shift of heart and mediastinum towards the right. HEART: Normal heart size. Shift of heart and mediastinum towards the right side as result of the very large left pleural effusion. No pericardial effusion. LYMPH NODES: Mild mediastinal lymphadenopathy. No definite hilar lymphadenopathy. BONES, CHEST WALL: Unremarkable. No fracture or destructive lesion OTHER FINDINGS: Surgical clips in right breast. IMPRESSION: No evidence of pulmonary embolism. Evaluation of right lower lobe subsegmental pulmonary artery branches is limited, as above. Massive left pleural effusion with almost complete atelectasis of left lung and shift of heart and mediastinum towards the right. Numerous right-sided pulmonary masses consistent with metastasis without gross interval change compared to 02/07/2018. The
--- NOTE | 2018-09-08 19:06 | CARD ---
APPROVED REPORT Date of service: 09/08/2018 EKG Measurement Heart [id number] <Conclusion> Normal sinus rhythm with sinus arrhythmia Nonspecific T wave abnormality Abnormal ECG
== END 2018-09-08 06:50 | disposition home or self-care (01) ==
LOC: H.ER 00:16
DX: R06.00 Dyspnea, unspecified (principal); I10 Essential (primary) hypertension; C80.1 Malignant (primary) neoplasm, unspecified; J44.9 Chronic obstructive pulmonary disease, unspecified; J90 Pleural effusion, not elsewhere classified
CPT/HCPCS: 71275; 80053; 81003; 84484; 85025; 85610; 85730; 87804; 93005; 99285; Q9967

== ENCOUNTER 2018-09-14 07:15 | Emergency (ER) | payer MEDICARE, MEDICAID ==
[2018-09-14 07:41] VITALS: O2SAT 97
[2018-09-14] MEDS ORDERED: Albuterol 0.083% Inhal Sol (2.5 mg/3 mL) UD INH ONE (07:43)
--- NOTE | 2018-09-14 07:52 | ED PDOC ---
HPI: SOB/CHF/COPD Chief Complaint (Provider): SOB Additional Complaint(s): This is 73 y/o homeless female with PMH of breast ca, s/p lumpectomy, HTN and lung nodules (goes to [facility] for lung nodules) comes to the ER c/o one week history on SOB. Patient reports she was out side in cold today since she has no where to go, denies any chest pain, dizziness, cough, hemoptysis, fever, palpitations or blurred vision. PMH: breast ca, s/p lumpectomy, HTN and lung nodules PSH: breast ca, s/p lumpectomy Allg: Flu vaccine Meds: BP medication only SH: Denies alcohol, smoking or drug use FH: Grandmother with breast cancer ROS: As per HPI <Indiana Muniz - Last Filed: 09/14/18 07:58> <Lindsay Espana - Last Filed: 09/14/18 11:49> Time Seen by Provider: 09/14/18 07:32 Chief Complaint (Nursing): Shortness Of Breath Past Medical History Vital Signs: Last Vital Signs Temp 98.2 F 09/14/18 07:28 Pulse 89 09/14/18 07:34 Resp 18 09/14/18 07:28 BP 137/83 09/14/18 07:28 Pulse Ox 97 09/14/18 07:34 - Medical History PMH: HTN, Malignancy, Peripheral Edema (Chronic BLE edema) - Family History Family History: States: Unknown Family Hx <Indiana Muniz - Last Filed: 09/14/18 07:58> Reviewed: Historical Data, Nursing Documentation, Vital Signs Vital Signs: Last Vital Signs Temp 98.2 F 09/14/18 07:28 Pulse 89 09/14/18 07:34 Resp 19 09/14/18 07:50 BP 137/83 09/14/18 07:28 Pulse Ox 97 09/14/18 07:59 - Surgical History Surgical History: No Surg Hx <Lindsay Espana - Last Filed: 09/14/18 11:49> - Home Medications Home Medications: Ambulatory Orders Medication Instructions Recorded RX: Ketoconazole 2% Cr [Nizoral] 60 gm TOP BID #0 tube 04/16/14 Furosemide [Lasix] 20 mg PO DAILY #10 tab 07/13/14 Albuterol 0.5% [Albuterol 0.5% 2.5 mg IH Q6H PRN #3 neb 07/16/14 Inhal Shakila (2.5 mg/0.5 ml) UD] Azithromycin [Zithromax Z-Andrews] 250 mg PO DAILY #6 tab 07/16/14 Ibuprofen [Motrin] 600 mg PO Q8 PRN #6 tab 07/16/14 Polymyxin/Trimethoprim Sulfate 1 - 2 drop OS Q4 #1 bottle 08/08/14 [Polytrim Ophth Soln] RX: Clotrimazole 1% Cream 15 applic EXT DAILY #1 tube 02/07/15 [Lotrimin 1% CREAM] RX: Naproxen 375 mg PO Q8 PRN #21 tab 06/04/15 diaZEpam [Valium] 5 mg PO Q6 PRN #6 tab 06/04/15 Methylprednisolone [Medrol Dose 4 mg PO DAILY #1 packet 10/13/16 Pack (21 tabs)] Promethazine HCl/Codeine 5 ml PO TID PRN #30 syrup 10/13/16 [Prometh-Codein 6.25-10 mg/5 ml] RX: Azithromycin [Zithromax] 250 mg PO DAILY #6 tab 10/13/16 Azithromycin [Zithromax] 250 mg PO DAILY #6 tab 03/09/17 Benzonatate [Tessalon Perle] 100 mg PO Q8 PRN #30 capsule 03/09/17 Azithromycin [Zithromax] 250 mg PO DAILY #6 tab 07/15/17 RX: Tobramycin 0.3% [Tobrex 0.3% 1 appl OD QID #1 tube 07/15/17 Ophth Oint] Furosemide [Lasix] 20 mg PO QAM #7 tab 09/03/18 Naproxen [Naprosyn] 500 mg PO Q12H #20 tab 09/06/18 Albuterol Sulfate [Ventolin Hfa] 1 puff IH Q4 PRN #1 ml 09/07/18 RX: cloNIDine [Catapres] 0.1 mg PO BID #60 tab 09/08/18 Albuterol HFA [Ventolin HFA 90 2 puff IH Q4 PRN #1 unit 09/14/18 mcg/actuation (8 g)] - Allergies Allergies/Adverse Reactions: Allergies Allergy/AdvReac Type Severity Reaction Status Date / Time EGG Allergy RASH Verified 09/14/18 08:06 latex Allergy RASH Verified 09/14/18 08:06 flu vaccine Allergy RASH Uncoded 09/14/18 08:06 Review of Systems Constitutional: Negative for: Fever, Sweats Eyes: Negative for: Pain ENT: Negative for: Ear Pain, Nose Discharge Cardiovascular: Negative for: Chest Pain Respiratory: Positive for: Shortness of Breath, SOB with Exertion. Negative for: Cough, Hemoptysis, Wheezing Gastrointestinal: Negative for: Nausea, Abdominal Pain Genitourinary Female: Negative for: Dysuria Musculoskeletal: Negative for: Neck Pain Neurological: Negative for: Weakness Psych: Negative for: Anxiety <Indiana Muniz - Last Filed: 09/14/18 07:58> ROS Statement: Except As Marked, All Systems Reviewed And Found Negative <Lindsay Espana - Last Filed: 09/14/18 11:49> Physical Exam - Physical Exam Appears: Positive for: No Acute Distress Skin: Positive for: Normal Color Eye Exam: Positive for: Normal appearance, EOMI, PERRL ENT: Positive for: Normal ENT Inspection Neck: Positive for: Normal Cardiovascular/Chest: Positive for: Regular Rate, Rhythm. Negative for: Edema, JVD Respiratory: Positive for: Wheezing (Scattered ). Negative for: Respiratory Distress Gastrointestinal/Abdominal: Positive for: Normal Exam, Soft. Negative for: Tenderness Back: Positive for: Normal Inspection. Negative for: L CVA Tenderness, R CVA Tenderness Extremity: Positive for: Normal ROM. 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 - Monitor Spo2 - O2 as needed - Albutrol treatment - Patient declined any blood work/CXR - reevaluation Case discussed with Dr. Espana <Indiana Muniz - Last Filed: 09/14/18 07:58> - Progress Re-evaluation Time: 10:34 Condition: Re-examined, Improved <Lindsay Espana - Last Filed: 09/14/18 11:49> Disposition <Indiana Muniz - Last Filed: 09/14/18 07:58> - Patient ED Disposition Is Patient to be Admitted: No Doctor Will See Patient In The: Office Counseled Patient/Family Regarding: Studies Performed, Diagnosis, Need For Followup - Disposition Disposition: Routine/Home Disposition Time: 10:35 <Lindsay Espana - Last Filed: 09/14/18 11:49> - Clinical Impression Clinical Impression: Bronchitis - Disposition Referrals: [facility] [Outside] Condition: GOOD Additional Instructions: JOHN FARIA, thank you for letting us take care of you today. Your provider was Lindsay Espana MD and you were treated for SOB. The emergency medical care you received today was directed at your acute symptoms. If you were prescribed any medication, please fill it and take as directed. It may take several days for your symptoms to resolve. Return to the Emergency Department if your symptoms worsen, do not improve, or if you have any other problems. Please contact your doctor or call one of the physicians/clinics you have been referred to that are listed on the Patient Visit Information form that is included in your discharge packet. Bring any paperwork you were given at discharge with you along with any medications you are taking to your follow up visit. Our treatment cannot replace ongoing medical care by a primary care provider outside of the emergency department. Thank you for allowing the [facility] team to be part of your care today. If you had an X-Ray or CT scan: A Radiologist will review the ED reading if any change in treatment is needed we will contact you. If you had a blood, urine, or wound culture: It will take several days for the results, if any change in treatment is needed we will contact you. If you had an STI test: It will take 48 hours for the results. Please call after 1 week if you have not heard back. Prescriptions: Albuterol HFA [Ventolin HFA 90 mcg/actuation (8 g)] 2 puff IH Q4 PRN #1 unit PRN Reason: Wheezing Instructions: Acute Bronchitis, Adult (DC)
[2018-09-14 08:00] VITALS: RESP 19
[2018-09-14] MEDS ORDERED: Albuterol 0.083% Inhal Sol (2.5 mg/3 mL) UD ONE (08:06)
[2018-09-14 11:23] VITALS: BP 131/84; PULSE 76; TEMP 98.7
--- NOTE | 2018-09-15 19:50 | CARD ---
APPROVED REPORT Date of service: 09/14/2018 EKG Measurement Heart [id number] <Conclusion> Sinus rhythm with premature atrial complexes Minimal voltage criteria for LVH, may be normal variant Nonspecific ST abnormality Abnormal ECG
== END 2018-09-14 11:19 | disposition home or self-care (01) ==
LOC: H.ER 07:15
DX: J40 Bronchitis, not specified as acute or chronic (principal); I10 Essential (primary) hypertension; Z85.3 Personal history of malignant neoplasm of breast; Z79.899 Other long term (current) drug therapy; I49.1 Atrial premature depolarization; J44.9 Chronic obstructive pulmonary disease, unspecified

== ENCOUNTER 2018-09-20 05:00 | Emergency (ER) | payer MEDICARE, MEDICAID ==
[2018-09-20 06:15] VITALS: BMI 47.4
[2018-09-20] MEDS ORDERED: Albuterol 0.083% Inhal Sol (2.5 mg/3 mL) UD INH STA (06:16)
--- NOTE | 2018-09-20 06:37 | ED PDOC ---
HPI: SOB/CHF/COPD Time Seen by Provider: 09/20/18 06:07 Chief Complaint (Nursing): Respiratory Distress Chief Complaint (Provider): Respiratory Distress History Per: Patient History/Exam Limitations: no limitations Additional Complaint(s): Maryanne Cramer is a 73 year old female with a past medical history of lung nodules, chronic leg swelling, breast cancer, and HTN, who presents to the emergency department complaining of shortness of breath. Patient states that she suddenly felt short of breath after she was asked to the leave the waiting room. She states that she is homeless and has no where to go because [facility]. Patient states she came here with a friend and was sitting in the waiting room and suddenly felt short of breath. She further stated that she sometimes feels like this when she walks. Patient states she is feeling better now and denies having any chest pain, cough, fever or leg swelling. PMD: BONI NAGEL Past Medical History Reviewed: Historical Data, Nursing Documentation, Vital Signs Vital Signs: Last Vital Signs Temp 98.6 F 09/20/18 05:17 Pulse 84 09/20/18 05:17 Resp 18 09/20/18 05:17 BP 105/80 09/20/18 05:17 Pulse Ox 97 09/20/18 05:17 - Medical History PMH: HTN, Malignancy, Peripheral Edema (Chronic BLE edema) Other PMH: leg swelling - Surgical History Other surgeries: lumpectomy from breast cancer - Family History Family History: States: Unknown Family Hx - Social History Current smoker - smoking cessation education provided: No Ex-Smoker (has not smoked in the last 12 months): No Alcohol: None Drugs: Denies - Home Medications Home Medications: Ambulatory Orders Medication Instructions Recorded Ketoconazole 2% Cr [Nizoral] 60 gm TOP BID #0 tube 04/16/14 Furosemide [Lasix] 20 mg PO DAILY #10 tab 07/13/14 Albuterol 0.5% [Albuterol 0.5% 2.5 mg IH Q6H PRN #3 neb 07/16/14 Inhal Shakila (2.5 mg/0.5 ml) UD] Azithromycin [Zithromax Z-Andrews] 250 mg PO DAILY #6 tab 07/16/14 Ibuprofen [Motrin] 600 mg PO Q8 PRN #6 tab 07/16/14 Polymyxin/Trimethoprim Sulfate 1 - 2 drop OS Q4 #1 bottle 08/08/14 [Polytrim Ophth Soln] Clotrimazole 1% Cream [Lotrimin 1% 15 applic EXT DAILY #1 tube 02/07/15 CREAM] Naproxen 375 mg PO Q8 PRN #21 tab 06/04/15 diaZEpam [Valium] 5 mg PO Q6 PRN #6 tab 06/04/15 Azithromycin [Zithromax] 250 mg PO DAILY #6 tab 10/13/16 Methylprednisolone [Medrol Dose 4 mg PO DAILY #1 packet 10/13/16 Pack (21 tabs)] Promethazine HCl/Codeine 5 ml PO TID PRN #30 syrup 10/13/16 [Prometh-Codein 6.25-10 mg/5 ml] Azithromycin [Zithromax] 250 mg PO DAILY #6 tab 03/09/17 Benzonatate [Tessalon Perle] 100 mg PO Q8 PRN #30 capsule 03/09/17 Azithromycin [Zithromax] 250 mg PO DAILY #6 tab 07/15/17 Tobramycin 0.3% [Tobrex 0.3% Ophth 1 appl OD QID #1 tube 07/15/17 Oint] Furosemide [Lasix] 20 mg PO QAM #7 tab 09/03/18 Naproxen [Naprosyn] 500 mg PO Q12H #20 tab 09/06/18 Albuterol Sulfate [Ventolin Hfa] 1 puff IH Q4 PRN #1 ml 09/07/18 cloNIDine [Catapres] 0.1 mg PO BID #60 tab 09/08/18 Albuterol HFA [Ventolin HFA 90 2 puff IH Q4 PRN #1 unit 09/14/18 mcg/actuation (8 g)] - Allergies Allergies/Adverse Reactions: Allergies Allergy/AdvReac Type Severity Reaction Status Date / Time EGG Allergy RASH Verified 09/14/18 08:06 latex Allergy RASH Verified 09/14/18 08:06 flu vaccine Allergy RASH Uncoded 09/14/18 08:06 Review of Systems ROS Statement: Except As Marked, All Systems Reviewed And Found Negative Constitutional: Negative for: Fever Cardiovascular: Negative for: Chest Pain Respiratory: Positive for: Shortness of Breath. Negative for: Cough Musculoskeletal: Negative for: Other (leg swelling) Physical Exam - Reviewed Nursing Documentation Reviewed: Yes Vital Signs Reviewed: Yes - Physical Exam Appears: Positive for: No Acute Distress (sleeping comfortably ) Head Exam: Positive for: ATRAUMATIC Skin: Positive for: Normal Color, Warm, Dry Cardiovascular/Chest: Negative for: Regular Rate, Rhythm, Murmur Respiratory: Positive for: Normal Breath Sounds. Negative for: Wheezing, Respiratory Distress Gastrointestinal/Abdominal: Positive for: Normal Exam, Soft. Negative for: Tenderness Extremity: Positive for: Other (chronic bilateral lower leg edema) Neurologic/Psych: Positive for: Alert, Oriented - Laboratory Results Result Diagrams: 09/20/18 07:40 09/20/18 07:40 - ECG O2 Sat by Pulse Oximetry: 97 (RA) Pulse Ox Interpretation: Normal Medical Decision Making Medical Decision Making: Time: 614 Impression: shortness of breath Differential diagnosis includes but is not limited to acute bronchitis, CHF, and atypical ACS Plan: --Ekg --Bmp --b-type natriuretic peptide --troponin I --CBC with differential --Chest xray 1 view --Albuterol 2.5 mg INH --Peak flow pre/post tx 0630 Patient is comfortably sleeping and no distress. CXR reviewed Left sided pleural effusion and mass unchanged from pervious CT chest. 0700 Patient care endorsed to Dr. Cardoza, pending labs. Scribe Attestation: Documented by Pio Aburto, acting as a scribe for Lindsay Espana MD. Provider Scribe Attestation: All medical record entries made by the Scribe were at my direction and personally dictated by me. I have reviewed the chart and agree that the record accurately reflects my personal performance of the history, physical exam, medical decision making, and the department course for this patient. I have also personally directed, reviewed, and agree with the discharge instructions and disposition. Disposition - Clinical Impression Clinical Impression: Mass of left lung, Bronchitis - Patient ED Disposition Is Patient to be Admitted: Transfer of Care Counseled Patient/Family Regarding: Studies Performed, Diagnosis - Disposition Disposition: Transfer of Care Disposition Time: 07:00 Condition: STABLE Additional Instructions: Please followup with your primary care doctor and specialist for continued care. Patient Signed Over To: Mahi Cardoza
--- NOTE | 2018-09-20 07:26 | ED PDOC ---
- Laboratory Results Result Diagrams: 09/20/18 07:40 09/20/18 07:40 - ECG O2 Sat by Pulse Oximetry: 97 (RA) Pulse Ox Interpretation: Normal Medical Decision Making Medical Decision Making: Time: 0700 Patient care endorsed by Dr. Espana to Dr. Cardoza pending labs and reevaluation Scribe Attestation: Documented by Gabriel García, acting as a scribe for Mahi Cardoza MD. Provider Scribe Attestation: All medical record entries made by the Scribe were at my direction and personally dictated by me. I have reviewed the chart and agree that the record accurately reflects my personal performance of the history, physical exam, medical decision making, and the department course for this patient. I have also personally directed, reviewed, and agree with the discharge instructions and disposition. Labs and x-rays reviewed. patient has followup with MDs in [facility] for her lung disease Disposition Doctor Will See Patient In The: Office Counseled Patient/Family Regarding: Diagnosis, Need For Followup - Clinical Impression Clinical Impression: Mass of left lung - POA Present On Arrival: None - Disposition Disposition: Routine/Home Disposition Time: 08:45 Condition: STABLE Additional Instructions: Please followup with your primary care doctor and specialist for continued care. Forms: [employer] (Azeri)
[2018-09-20] MEDS ORDERED: Albuterol 0.083% Inhal Sol (2.5 mg/3 mL) UD ONE (07:27)
[2018-09-20 08:24] LABS: BASO % 0.7 % (0.0-2.0); EOS # 0.1 K/uL (0.0-0.7); EOS % 1.7 % (0.0-4.0); HEMOGLOBIN 13.7 g/dL (12.0-16.0); LYMPH # 1.1 K/uL (1.0-4.3); LYMPH % 19.2 % (20.0-40.0); MEAN CELL VOLUME 91.9 fl (81.0-99.0); MEAN CORPUSCULAR HEMOGLOBIN 30.1 pg (27.0-31.0); MEAN CORPUSCULAR HGB CONC 32.7 g/dL (33.0-37.0); MEAN PLATELET VOLUME 8.2 fl (7.2-11.7); MONO # 0.6 K/uL (0.0-0.8); MONO % 10.2 % (0.0-10.0); NEUT # 3.9 K/uL (1.8-7.0); NEUT % 68.2 % (50.0-75.0); NRBC % 0.1 % (0.0-0.0); RBC 4.56 Mil/uL (3.80-5.20); RED CELL DISTRIBUTION WIDTH 14.9 % (11.5-14.5); WHITE BLOOD COUNT 5.7 K/uL (4.8-10.8)
[2018-09-20 08:46] LABS: BLOOD UREA NITROGEN 21 mg/dl (7-17); CALCIUM 9.6 mg/dL (8.4-10.2); GFR NON-AFRICAN AMERICAN > 60
[2018-09-20 08:51] LABS: B-TYPE NATRIURETIC PEPTIDE 93.4 pg/ml (0-900)
[2018-09-20 09:24] VITALS: BP 169/82; PULSE 83; RESP 20; TEMP 97.9
[2018-09-20 13:31] VITALS: O2SAT 97
--- NOTE | 2018-09-20 15:02 | RAD ---
Date of service: 09/20/2018 PROCEDURE: CHEST RADIOGRAPH, 1 VIEW HISTORY: dyspnea COMPARISON: Comparison is made with 02/06/[address] dated 09/08/2018 FINDINGS: LUNGS: Interval complete white out of the left lung. PLEURA: Possible large left pleural effusion with complete collapse of the left lung. CARDIOVASCULAR: Cannot evaluate the cardiac silhouette. Mediastinal structures shift to the right noted. OSSEOUS STRUCTURES: No significant abnormalities. VISUALIZED UPPER ABDOMEN: Normal. OTHER FINDINGS: None. IMPRESSION: Complete white out of the left chest which is likely due to large pleural effusion resulting in mediastinal shift to the right.
--- NOTE | 2018-09-20 21:38 | CARD ---
APPROVED REPORT Date of service: 09/20/2018 EKG Measurement Heart [id number] NM [id number] <Conclusion> Normal sinus rhythm Moderate voltage criteria for LVH, may be normal variant Abnormal ECG
== END 2018-09-20 09:15 | disposition home or self-care (01) ==
LOC: H.ER 05:00
DX: R91.8 Other nonspecific abnormal finding of lung field (principal); I10 Essential (primary) hypertension; J44.9 Chronic obstructive pulmonary disease, unspecified; J90 Pleural effusion, not elsewhere classified; Z85.3 Personal history of malignant neoplasm of breast; Z87.891 Personal history of nicotine dependence; Z59.0 Homelessness

== ENCOUNTER 2018-09-27 06:34 | Emergency (ER) | payer MEDICARE, MEDICAID ==
[2018-09-27 07:00] VITALS: TEMP 97.8
[2018-09-27 07:01] VITALS: BMI 34.0
[2018-09-27] MEDS ORDERED: Albuterol-Ipratrop 3 mg / 0.5 (3 ml) UD IH STA (07:16)
--- NOTE | 2018-09-27 07:33 | ED PDOC ---
HPI: CCC, URI, Sore Throat Time Seen by Provider: 09/27/18 07:06 Chief Complaint (Nursing): Cough, Cold, Congestion Chief Complaint (Provider): Cough, Cold, Congestion History Per: Patient History/Exam Limitations: no limitations Onset/Duration Of Symptoms: Days (x2) Current Symptoms Are (Timing): Still Present Additional Complaint(s): Patient is a 73 y/o female with a PMHx of peripheral edema, HTN, and malignancy who presents to the ED for evaluation of cough, congestion, and shortness of breath for the past two days. Patient was seen in the ED on 09/20/2018. A chest xray revealed complete whiteout of left lung field. A CT of chest on 09/08/2018 presented similar findings with possible metastatic lesions in right lung. It is unclear if patient has had workup for followup because she is non-domiciled. Patient denies chest pain, fever, and dizziness. Of note, patient states she has been taking medication for HTN. PCP: None Provided Past Medical History Reviewed: Historical Data, Nursing Documentation, Vital Signs Vital Signs: Last Vital Signs Temp 97.8 F 09/27/18 07:00 Pulse 84 09/27/18 07:17 Resp 16 09/27/18 07:17 BP 182/110 H 09/27/18 07:17 Pulse Ox 96 09/27/18 07:00 - Medical History PMH: HTN, Malignancy, Peripheral Edema (Chronic BLE edema) - Surgical History Surgical History: No Surg Hx - Family History Family History: States: Unknown Family Hx - Living Arrangements Living Arrangements: Other (non-domiciled) - Home Medications Home Medications: Ambulatory Orders Medication Instructions Recorded Ketoconazole 2% Cr [Nizoral] 60 gm TOP BID #0 tube 04/16/14 Furosemide [Lasix] 20 mg PO DAILY #10 tab 07/13/14 Albuterol 0.5% [Albuterol 0.5% 2.5 mg IH Q6H PRN #3 neb 07/16/14 Inhal Shakila (2.5 mg/0.5 ml) UD] Azithromycin [Zithromax Z-Andrews] 250 mg PO DAILY #6 tab 07/16/14 Ibuprofen [Motrin] 600 mg PO Q8 PRN #6 tab 07/16/14 Polymyxin/Trimethoprim Sulfate 1 - 2 drop OS Q4 #1 bottle 08/08/14 [Polytrim Ophth Soln] Clotrimazole 1% Cream [Lotrimin 1% 15 applic EXT DAILY #1 tube 02/07/15 CREAM] Naproxen 375 mg PO Q8 PRN #21 tab 06/04/15 diaZEpam [Valium] 5 mg PO Q6 PRN #6 tab 06/04/15 Azithromycin [Zithromax] 250 mg PO DAILY #6 tab 10/13/16 Methylprednisolone [Medrol Dose 4 mg PO DAILY #1 packet 10/13/16 Pack (21 tabs)] Promethazine HCl/Codeine 5 ml PO TID PRN #30 syrup 10/13/16 [Prometh-Codein 6.25-10 mg/5 ml] Azithromycin [Zithromax] 250 mg PO DAILY #6 tab 03/09/17 Benzonatate [Tessalon Perle] 100 mg PO Q8 PRN #30 capsule 03/09/17 Azithromycin [Zithromax] 250 mg PO DAILY #6 tab 07/15/17 Tobramycin 0.3% [Tobrex 0.3% Ophth 1 appl OD QID #1 tube 07/15/17 Oint] Furosemide [Lasix] 20 mg PO QAM #7 tab 09/03/18 Naproxen [Naprosyn] 500 mg PO Q12H #20 tab 09/06/18 Albuterol Sulfate [Ventolin Hfa] 1 puff IH Q4 PRN #1 ml 09/07/18 cloNIDine [Catapres] 0.1 mg PO BID #60 tab 09/08/18 Albuterol HFA [Ventolin HFA 90 2 puff IH Q4 PRN #1 unit 09/14/18 mcg/actuation (8 g)] Azithromycin [Zithromax] 250 mg PO DAILY #6 tab 09/27/18 - Allergies Allergies/Adverse Reactions: Allergies Allergy/AdvReac Type Severity Reaction Status Date / Time EGG Allergy RASH Verified 09/14/18 08:06 latex Allergy RASH Verified 09/14/18 08:06 flu vaccine Allergy RASH Uncoded 09/14/18 08:06 Review of Systems ROS Statement: Except As Marked, All Systems Reviewed And Found Negative Constitutional: Negative for: Fever ENT: Positive for: Nose Congestion Cardiovascular: Negative for: Chest Pain Respiratory: Positive for: Cough, Shortness of Breath Neurological: Negative for: Dizziness Physical Exam - Reviewed Nursing Documentation Reviewed: Yes Vital Signs Reviewed: Yes - Physical Exam Appears: Positive for: Non-toxic, No Acute Distress Head Exam: Positive for: ATRAUMATIC, NORMAL INSPECTION, NORMOCEPHALIC Skin: Positive for: Normal Color, Warm, Dry Eye Exam: Positive for: EOMI, Normal appearance, PERRL Neck: Positive for: Normal, Painless ROM, Supple Cardiovascular/Chest: Positive for: Tachycardia, Other (regular rhythm) Respiratory: Positive for: Decreased Breath Sounds (on left side), Rhonchi. Negative for: Rales, Respiratory Distress Gastrointestinal/Abdominal: Positive for: Normal Exam, Soft. Negative for: Tenderness Back: Positive for: Normal Inspection. Negative for: L CVA Tenderness, R CVA Tenderness, Vertebral Tenderness Extremity: Positive for: Normal ROM. Negative for: Pedal Edema, Deformity Neurologic/Psych: Positive for: Alert, Oriented. Negative for: Motor/Sensory Deficits - ECG O2 Sat by Pulse Oximetry: 96 (RA) Pulse Ox Interpretation: Normal - Progress Re-evaluation Time: 09:53 Condition: Improved (BP 168/95) Medical Decision Making Medical Decision Making: Time: 0716 Impression: Left pleural effusion. Probable malignant disease given CT findings on 09/08/2018. Currently, patient declining chest xray. Will try to convince patient to remain in ED and undergo tests. Plan: EKG CMP CBC Catapres 0.1 mg PO Duoneb 3 ml IH Peak Flow Pre/Post TX .Pre/Post Treatment Influenza A B Time: 0740 Patient is aware of diagnosis, claiming she knows she has metastatic breast CA t o right lung with left sided effusion. Patient states she will followup with Dr. Macario Ordaz at [facility]. Patient declining blood work and xray today. ------ Scribe Attestation: Documented by Robert Oscar, acting as a scribe for Андрей Coronado MD. Provider Scribe Attestation: All medical record entries made by the Scribe were at my direction and personally dictated by me. I have reviewed the chart and agree that the record accurately reflects my personal performance of the history, physical exam, medical decision making, and the department course for this patient. I have also personally directed, reviewed, and agree with the discharge instructions and disposition. Disposition - Clinical Impression Clinical Impression: Breast cancer metastasized to lung, Pleural effusion, Hypertension - Patient ED Disposition Is Patient to be Admitted: No Counseled Patient/Family Regarding: Diagnosis, Need For Followup, Rx Given - Disposition Referrals: [facility] [Outside] Disposition: Routine/Home Disposition Time: 09:52 Condition: FAIR Prescriptions: Azithromycin [Zithromax] 250 mg PO DAILY #6 tab Instructions: Pleural Effusion, Breast Cancer, High Blood Pressure (DC) Forms: [employer] (Kazakh)
[2018-09-27 08:02] VITALS: PULSE 80
[2018-09-27 11:23] VITALS: BP 178/98; RESP 18; O2SAT 98
--- NOTE | 2018-09-27 23:56 | CARD ---
APPROVED REPORT Date of service: 09/27/2018 EKG Measurement Heart [id number] CO [id number] <Conclusion> Normal sinus rhythm Moderate voltage criteria for LVH, may be normal variant Nonspecific T wave abnormality Abnormal ECG
== END 2018-09-27 10:00 | disposition home or self-care (01) ==
LOC: H.ER 06:34
DX: C78.00 Secondary malignant neoplasm of unspecified lung (principal); I10 Essential (primary) hypertension; J90 Pleural effusion, not elsewhere classified

== ENCOUNTER 2018-10-24 07:41 | Emergency (ER) | payer MEDICARE, MEDICAID ==
[2018-10-24 07:52] VITALS: BMI 32.2
--- NOTE | 2018-10-24 08:16 | ED PDOC ---
HPI: Chest Pain Time Seen by Provider: 10/24/18 07:55 Chief Complaint (Nursing): Abdominal Pain Chief Complaint (Provider): Chest Pain History Per: Patient History/Exam Limitations: no limitations Onset/Duration Of Symptoms: Days Current Symptoms Are (Timing): Still Present Additional Complaint(s): Patient is a 73 y/o female with a PMHx of HTN, malignancy, bronchitis, peripheral edema, gastritis, lung cancer, and as of recently a pleural effusion who presents to the ED for evaluation of mid-sternal chest pressure for the past couple of days. Patient has been seen by [facility] oncologists who recommended a CXR, thus, prompting her ED visit. Of note, patient had a left- sided pigtail catheter placed that was recently removed. Oncologist: [place] Past Medical History Reviewed: Historical Data, Nursing Documentation, Vital Signs Vital Signs: Last Vital Signs Temp 97.7 F 10/24/18 07:52 Pulse 100 H 10/24/18 07:52 Resp 17 10/24/18 07:52 BP 139/83 10/24/18 07:52 Pulse Ox 96 10/24/18 07:52 - Medical History PMH: Bronchitis, Gastritis, HTN, Malignancy, Peripheral Edema (Chronic BLE edema) Denies: Chronic Kidney Disease Other PMH: Lung Cancer and Pleural Effusion - Surgical History Surgical History: No Surg Hx - Family History Family History: States: Unknown Family Hx - Home Medications Home Medications: Ambulatory Orders Medication Instructions Recorded Ketoconazole 2% Cr [Nizoral] 60 gm TOP BID #0 tube 04/16/14 Furosemide [Lasix] 20 mg PO DAILY #10 tab 07/13/14 Albuterol 0.5% [Albuterol 0.5% 2.5 mg IH Q6H PRN #3 neb 07/16/14 Inhal Shakila (2.5 mg/0.5 ml) UD] Azithromycin [Zithromax Z-Andrews] 250 mg PO DAILY #6 tab 07/16/14 Ibuprofen [Motrin] 600 mg PO Q8 PRN #6 tab 07/16/14 Polymyxin/Trimethoprim Sulfate 1 - 2 drop OS Q4 #1 bottle 08/08/14 [Polytrim Ophth Soln] Clotrimazole 1% Cream [Lotrimin 1% 15 applic EXT DAILY #1 tube 02/07/15 CREAM] Naproxen 375 mg PO Q8 PRN #21 tab 06/04/15 diaZEpam [Valium] 5 mg PO Q6 PRN #6 tab 06/04/15 Azithromycin [Zithromax] 250 mg PO DAILY #6 tab 10/13/16 Methylprednisolone [Medrol Dose 4 mg PO DAILY #1 packet 10/13/16 Pack (21 tabs)] Promethazine HCl/Codeine 5 ml PO TID PRN #30 syrup 10/13/16 [Prometh-Codein 6.25-10 mg/5 ml] Azithromycin [Zithromax] 250 mg PO DAILY #6 tab 03/09/17 Benzonatate [Tessalon Perle] 100 mg PO Q8 PRN #30 capsule 03/09/17 Azithromycin [Zithromax] 250 mg PO DAILY #6 tab 07/15/17 Tobramycin 0.3% [Tobrex 0.3% Ophth 1 appl OD QID #1 tube 07/15/17 Oint] Furosemide [Lasix] 20 mg PO QAM #7 tab 09/03/18 Naproxen [Naprosyn] 500 mg PO Q12H #20 tab 09/06/18 Albuterol Sulfate [Ventolin Hfa] 1 puff IH Q4 PRN #1 ml 09/07/18 cloNIDine [Catapres] 0.1 mg PO BID #60 tab 09/08/18 Albuterol HFA [Ventolin HFA 90 2 puff IH Q4 PRN #1 unit 09/14/18 mcg/actuation (8 g)] Azithromycin [Zithromax] 250 mg PO DAILY #6 tab 09/27/18 - Allergies Allergies/Adverse Reactions: Allergies Allergy/AdvReac Type Severity Reaction Status Date / Time EGG Allergy RASH Verified 09/14/18 08:06 latex Allergy RASH Verified 09/14/18 08:06 flu vaccine Allergy RASH Uncoded 09/14/18 08:06 Review of Systems ROS Statement: Except As Marked, All Systems Reviewed And Found Negative Cardiovascular: Positive for: Chest Pain (mid-sternal pressure) Physical Exam - Reviewed Nursing Documentation Reviewed: Yes Vital Signs Reviewed: Yes - Physical Exam Appears: Positive for: No Acute Distress Head Exam: Positive for: ATRAUMATIC, NORMAL INSPECTION, NORMOCEPHALIC Skin: Positive for: Normal Color, Warm, DRY Eye Exam: Positive for: EOMI, Normal appearance, PERRL Neck: Positive for: Normal, Painless ROM, Supple Cardiovascular/Chest: Positive for: Regular Rate, Rhythm. Negative for: Murmur Respiratory: Positive for: Normal Breath Sounds. Negative for: Respiratory Distress Extremity: Positive for: Normal ROM Neurologic/Psych: Positive for: Alert, Oriented. Negative for: Motor/Sensory Deficits - ECG ECG: Positive for: Interpreted By Fl ECG Rhythm: Positive for: Sinus Rhythm, Nonspecific Changes Rate: 82 O2 Sat by Pulse Oximetry: 96 (RA) Pulse Ox Interpretation: Normal - Radiology X-Ray: Interpreted by Fl X-Ray Interpretation: Other (improved L pleural effusion from prior) Medical Decision Making Medical Decision Making: Time: 814 Plan: CXR reviewed, minimal L pleural effusion compared to prior CXR patient refused labs, ambulating around ED, no distress, wants to go home, had questions on requesting medical records for a second opinion she is seeking at [facility], process explained and she was discharged from ED with stable vitals in no distress. Scribe Attestation: Documented by Robert Oscar, acting as a scribe for Abhi Sauceda III, DO. Provider Scribe Attestation: All medical record entries made by the Scribe were at my direction and personally dictated by me. I have reviewed the chart and agree that the record accurately reflects my personal performance of the history, physical exam, medical decision making, and the department course for this patient. I have also personally directed, reviewed, and agree with the discharge instructions and disposition. Disposition - Clinical Impression Clinical Impression: Pleural effusion - Patient ED Disposition Is Patient to be Admitted: No - Disposition Disposition: Routine/Home Disposition Time: 09:50 Condition: STABLE Additional Instructions: Followup with your cancer doctors and PMD in next few days. Return to ER for any difficulty breathing, fever, pain or any concern. You declined bloodwork and further testing today. Instructions: Pleural Effusion Forms: [facility] (Gambian)
[2018-10-24 10:32] VITALS: BP 142/78; RESP 19; TEMP 98.5
--- NOTE | 2018-10-24 11:00 | RAD ---
Date of service: 10/24/2018 HISTORY: malignancy recent pleural effusion COMPARISON: Chest radiograph dated 09/20/2018. TECHNIQUE: Chest PA and lateral FINDINGS: LUNGS: Right mid lung opacity. PLEURA: Decrease in size of massive left pleural effusion with small residual effusion. No appreciable pneumothorax. Elevated left hemidiaphragm. CARDIOVASCULAR: Aortic atherosclerotic calcifications. Cardiomediastinal silhouette stably enlarged. OSSEOUS STRUCTURES: Unchanged. VISUALIZED UPPER ABDOMEN: Normal. OTHER FINDINGS: Right breast opacity with surrounding surgical clips IMPRESSION: Small residual left pleural effusion. Right midlung mass/opacity.
[2018-10-24 21:56] VITALS: PULSE 82; O2SAT 96
--- NOTE | 2018-10-25 10:03 | CARD ---
APPROVED REPORT Date of service: 10/24/2018 EKG Measurement Heart [id number] CT [id number] <Conclusion> Normal sinus rhythm Voltage criteria for left ventricular hypertrophy Nonspecific T wave abnormality Abnormal ECG
== END 2018-10-24 10:28 | disposition home or self-care (01) ==
LOC: H.ER 07:41
DX: J90 Pleural effusion, not elsewhere classified (principal); I10 Essential (primary) hypertension; Z85.118 Personal history of other malignant neoplasm of bronchus and lung

== ENCOUNTER 2018-10-27 05:45 | Emergency (ER) | payer MEDICARE, MEDICAID ==
[2018-10-27 05:45] VITALS: BMI 32.2
[2018-10-27 05:52] VITALS: BP 140/74; PULSE 89; RESP 16; TEMP 97.4; O2SAT 97
--- NOTE | 2018-10-27 06:09 | ED PDOC ---
HPI:Nausea, Vomiting, Diarrhea Time Seen by Provider: 10/27/18 05:56 Chief Complaint (Nursing): Abdominal Pain Chief Complaint (Provider): Diarrhea History Per: Patient History/Exam Limitations: no limitations Onset/Duration Of Symptoms: Days (earlier tonight) Current Symptoms Are (Timing): Still Present Associated Symptoms: denies: Fever Additional Complaint(s): 73 year old female with a past medical history of lung cancer, HTN, bronchitis and gastritis presents to the ED complaining of diarrhea onset today. She reports of 2 episodes of non-bloody diarrhea. Patient is homeless and well known to the provider. Currently, patient denies any complaint at this time in the ED. PMD: no family provider Past Medical History Reviewed: Historical Data, Nursing Documentation, Vital Signs Vital Signs: Last Vital Signs Temp 97.4 F L 10/27/18 05:49 Pulse 89 10/27/18 05:49 Resp 16 10/27/18 05:49 BP 140/74 10/27/18 05:49 Pulse Ox 97 10/27/18 05:49 - Medical History PMH: Bronchitis, Gastritis, HTN, Malignancy, Peripheral Edema (Chronic BLE edema) Denies: Chronic Kidney Disease - Family History Family History: States: Unknown Family Hx - Social History Current smoker - smoking cessation education provided: No Alcohol: None Drugs: Denies - Home Medications Home Medications: Ambulatory Orders Medication Instructions Recorded Ketoconazole 2% Cr [Nizoral] 60 gm TOP BID #0 tube 04/16/14 Furosemide [Lasix] 20 mg PO DAILY #10 tab 07/13/14 Albuterol 0.5% [Albuterol 0.5% 2.5 mg IH Q6H PRN #3 neb 07/16/14 Inhal Shakila (2.5 mg/0.5 ml) UD] Azithromycin [Zithromax Z-Andrews] 250 mg PO DAILY #6 tab 07/16/14 Ibuprofen [Motrin] 600 mg PO Q8 PRN #6 tab 07/16/14 Polymyxin/Trimethoprim Sulfate 1 - 2 drop OS Q4 #1 bottle 08/08/14 [Polytrim Ophth Soln] Clotrimazole 1% Cream [Lotrimin 1% 15 applic EXT DAILY #1 tube 02/07/15 CREAM] Naproxen 375 mg PO Q8 PRN #21 tab 10/11/15 diaZEpam [Valium] 5 mg PO Q6 PRN #6 tab 06/04/15 Azithromycin [Zithromax] 250 mg PO DAILY #6 tab 10/13/16 Methylprednisolone [Medrol Dose 4 mg PO DAILY #1 packet 10/13/16 Pack (21 tabs)] Promethazine HCl/Codeine 5 ml PO TID PRN #30 syrup 10/13/16 [Prometh-Codein 6.25-10 mg/5 ml] Azithromycin [Zithromax] 250 mg PO DAILY #6 tab 03/09/17 Benzonatate [Tessalon Perle] 100 mg PO Q8 PRN #30 capsule 03/09/17 Azithromycin [Zithromax] 250 mg PO DAILY #6 tab 07/15/17 Tobramycin 0.3% [Tobrex 0.3% Ophth 1 appl OD QID #1 tube 07/15/17 Oint] Furosemide [Lasix] 20 mg PO QAM #7 tab 09/03/18 Naproxen [Naprosyn] 500 mg PO Q12H #20 tab 09/06/18 Albuterol Sulfate [Ventolin Hfa] 1 puff IH Q4 PRN #1 ml 09/07/18 cloNIDine [Catapres] 0.1 mg PO BID #60 tab 09/08/18 Albuterol HFA [Ventolin HFA 90 2 puff IH Q4 PRN #1 unit 09/14/18 mcg/actuation (8 g)] Azithromycin [Zithromax] 250 mg PO DAILY #6 tab 09/27/18 - Allergies Allergies/Adverse Reactions: Allergies Allergy/AdvReac Type Severity Reaction Status Date / Time EGG Allergy RASH Verified 09/14/18 08:06 latex Allergy RASH Verified 09/14/18 08:06 flu vaccine Allergy RASH Uncoded 09/14/18 08:06 Review of Systems ROS Statement: Except As Marked, All Systems Reviewed And Found Negative Cardiovascular: Negative for: Chest Pain Gastrointestinal: Positive for: Diarrhea (2 episodes). Negative for: Nausea, Vomiting, Abdominal Pain Physical Exam - Reviewed Nursing Documentation Reviewed: Yes Vital Signs Reviewed: Yes - Physical Exam Appears: Positive for: Well, Non-toxic, No Acute Distress Head Exam: Positive for: ATRAUMATIC, NORMAL INSPECTION, NORMOCEPHALIC Skin: Positive for: Normal Color, Warm, Dry Eye Exam: Positive for: EOMI, Normal appearance, PERRL ENT: Positive for: Normal ENT Inspection Neck: Positive for: Normal, Painless ROM Cardiovascular/Chest: Positive for: Regular Rate, Rhythm. Negative for: Murmur Respiratory: Positive for: Normal Breath Sounds. Negative for: Decreased Breath Sounds, Respiratory Distress Gastrointestinal/Abdominal: Positive for: Normal Exam, Soft. Negative for: Tenderness, Guarding, Rebound Back: Positive for: Normal Inspection Extremity: Positive for: Normal ROM. Negative for: Tenderness, Pedal Edema, Deformity Neurologic/Psych: Positive for: Alert, Oriented (x3) - ECG O2 Sat by Pulse Oximetry: 97 (RA) Pulse Ox Interpretation: Normal Medical Decision Making Medical Decision Makin:56 Impression: 73 year old female presenting with diarrhea. 06:10 Upon provider evaluation, patient is requesting discharge to go to the [facility]. Otherwise, patient is feeling better, is medically stable, and requires no further treatment in the ED at this time. Patient will be discharged. Counseling was provided and all questions were answered regarding diagnosis. There is agreement to discharge plan. Return if symptoms persist or worsen. -------- Scribe Attestation: Documented by Gabriel García, acting as a scribe for John Rome MD Provider Scribe Attestation: All medical record entries made by the Scribe were at my direction and personally dictated by me. I have reviewed the chart and agree that the record accurately reflects my personal performance of the history, physical exam, medical decision making, and the department course for this patient. I have also personally directed, reviewed, and agree with the discharge instructions and disposition. Disposition - Clinical Impression Clinical Impression: Diarrhea - Patient ED Disposition Is Patient to be Admitted: No - Disposition Disposition: Routine/Home Disposition Time: 06:10 Condition: STABLE Instructions: Diarrhea in Adolescents and Adults Forms: [employer] (Macedonian)
== END 2018-10-27 06:20 | disposition home or self-care (01) ==
LOC: H.ER 05:45
DX: R19.7 Diarrhea, unspecified (principal); I10 Essential (primary) hypertension; Z59.0 Homelessness

== ENCOUNTER 2018-11-08 07:14 | Emergency (ER) | payer MEDICARE, MEDICAID ==
[2018-11-08 07:17] VITALS: BMI 28.3
[2018-11-08 07:19] VITALS: TEMP 97.6; O2SAT 97
--- NOTE | 2018-11-08 07:37 | ED PDOC ---
Lower Extremity Pain/Injury Time Seen by Provider: 11/08/18 07:15 Chief Complaint (Nursing): Lower Extremity Problem/Injury Chief Complaint (Provider): bilateral lower extremity swelling History Per: Patient History/Exam Limitations: no limitations Onset/Duration Of Symptoms: Days (x2) Current Symptoms Are (Timing): Still Present Additional Complaint(s): Maryanne Cramer is a 73 year old female, with a past medical history of breast CA and HTN, who presents to the emergency department complaining of bilateral leg swelling onset x2 days ago. Patient states swelling is chronic and usually resolves overnight but this time didn't which prompted ED visit. Patient reports being recently hospitalized at [facility] for x2 weeks where she was diagnosed with malignant pleural effusion but has not seeked treatment because she wants a second opinion from [facility] in [place]. She denies any fever, chills, cough, congestion, chest pain, shortness of breath, nausea, vomiting, diarrhea, headache, weakness, numbness, tingling or other medical complaints. PMD: None provided. Past Medical History Reviewed: Historical Data, Nursing Documentation, Vital Signs Vital Signs: Last Vital Signs Temp 97.6 F 11/08/18 07:17 Pulse 82 11/08/18 07:17 Resp 17 11/08/18 07:17 BP 144/79 11/08/18 07:17 Pulse Ox 97 11/08/18 07:17 - Medical History PMH: Bronchitis, Gastritis, HTN, Malignancy, Peripheral Edema (Chronic BLE edema) Denies: Chronic Kidney Disease - Surgical History Other surgeries: lumpectomy - Family History Family History: States: Unknown Family Hx - Social History Ex-Smoker (has not smoked in the last 12 months): Yes Alcohol: None Drugs: Denies - Home Medications Home Medications: Ambulatory Orders Medication Instructions Recorded Ketoconazole 2% Cr [Nizoral] 60 gm TOP BID #0 tube 04/16/14 Furosemide [Lasix] 20 mg PO DAILY #10 tab 07/13/14 Albuterol 0.5% [Albuterol 0.5% 2.5 mg IH Q6H PRN #3 neb 07/16/14 Inhal Shakila (2.5 mg/0.5 ml) UD] Azithromycin [Zithromax Z-Andrews] 250 mg PO DAILY #6 tab 07/16/14 Ibuprofen [Motrin] 600 mg PO Q8 PRN #6 tab 07/16/14 Polymyxin/Trimethoprim Sulfate 1 - 2 drop OS Q4 #1 bottle 08/08/14 [Polytrim Ophth Soln] Clotrimazole 1% Cream [Lotrimin 1% 15 applic EXT DAILY #1 tube 02/07/15 CREAM] Naproxen 375 mg PO Q8 PRN #21 tab 06/04/15 diaZEpam [Valium] 5 mg PO Q6 PRN #6 tab 06/04/15 Azithromycin [Zithromax] 250 mg PO DAILY #6 tab 10/13/16 Methylprednisolone [Medrol Dose 4 mg PO DAILY #1 packet 10/13/16 Pack (21 tabs)] Promethazine HCl/Codeine 5 ml PO TID PRN #30 syrup 10/13/16 [Prometh-Codein 6.25-10 mg/5 ml] Azithromycin [Zithromax] 250 mg PO DAILY #6 tab 03/09/17 Benzonatate [Tessalon Perle] 100 mg PO Q8 PRN #30 capsule 03/09/17 Azithromycin [Zithromax] 250 mg PO DAILY #6 tab 07/15/17 Tobramycin 0.3% [Tobrex 0.3% Ophth 1 appl OD QID #1 tube 07/15/17 Oint] Furosemide [Lasix] 20 mg PO QAM #7 tab 09/03/18 Naproxen [Naprosyn] 500 mg PO Q12H #20 tab 09/06/18 Albuterol Sulfate [Ventolin Hfa] 1 puff IH Q4 PRN #1 ml 09/07/18 cloNIDine [Catapres] 0.1 mg PO BID #60 tab 09/08/18 Albuterol HFA [Ventolin HFA 90 2 puff IH Q4 PRN #1 unit 09/14/18 mcg/actuation (8 g)] Azithromycin [Zithromax] 250 mg PO DAILY #6 tab 09/27/18 - Allergies Allergies/Adverse Reactions: Allergies Allergy/AdvReac Type Severity Reaction Status Date / Time EGG Allergy RASH Verified 09/14/18 08:06 latex Allergy RASH Verified 09/14/18 08:06 flu vaccine Allergy RASH Uncoded 09/14/18 08:06 Review of Systems ROS Statement: Except As Marked, All Systems Reviewed And Found Negative Constitutional: Negative for: Fever, Chills ENT: Negative for: Nose Congestion Cardiovascular: Positive for: Edema (lower extremities). Negative for: Chest Pain Respiratory: Negative for: Cough, Shortness of Breath Gastrointestinal: Negative for: Nausea, Vomiting Neurological: Negative for: Weakness, Numbness (tingling) Physical Exam - Reviewed Nursing Documentation Reviewed: Yes Vital Signs Reviewed: Yes - Physical Exam Appears: Positive for: No Acute Distress Head Exam: Positive for: ATRAUMATIC, NORMAL INSPECTION, NORMOCEPHALIC Skin: Positive for: Normal Color, Warm, Dry Eye Exam: Positive for: Normal appearance, EOMI, PERRL Neck: Positive for: Normal, Painless ROM Cardiovascular/Chest: Positive for: Regular Rate, Rhythm. Negative for: Murmur Respiratory: Positive for: Normal Breath Sounds, Other (Speaking full sentences). Negative for: Respiratory Distress Extremity: Positive for: Normal ROM (upper and lower extremities), Swelling (+3 pitting edema bilaterally). Negative for: Tenderness, Deformity Neurological/Psych: Positive for: Awake, Alert, Normal Tone - ECG O2 Sat by Pulse Oximetry: 97 (RA) Pulse Ox Interpretation: Normal Medical Decision Making Medical Decision Making: Time: 07:15 Initial Impression: Chronic leg swelling Initial Plan: --Duplex lower extrm vein bilateral --Reevaluation 09:30 Bilateral Lower Extremity Duplex US FINDINGS: COMMON FEMORAL VEIN: Right CFV: Unremarkable. Left CFV: Unremarkable. SUPERFICIAL FEMORAL VEIN: Right SFV: Unremarkable. Left SFV: Unremarkable. POPLITEAL VEIN: Right Popliteal: Unremarkable. Left Popliteal: Unremarkable. POSTERIOR TIBIAL VEIN: Right PTV: Unremarkable. Left PTV: Unremarkable. OTHER FINDINGS: None. IMPRESSION: No evidence of deep venous thrombosis. 09:40 Upon provider evaluation patient is medically stable, and requires no further treatment in the ED at this time. Patient will be discharged home. Counseling was provided and all questions were answered regarding diagnosis and need for follow up. There is agreement to discharge plan. Return if symptoms persist or worsen. Scribe Attestation: Documented by José Miguel Alcantar, acting as a scribe for Dee Jean MD Provider Scribe Attestation: All medical record entries made by the Scribe were at my direction and personally dictated by me. I have reviewed the chart and agree that the record accurately reflects my personal performance of the history, physical exam, medical decision making, and the department course for this patient. I have also personally directed, reviewed, and agree with the discharge instructions and disposition. Disposition - Clinical Impression Clinical Impression: Leg swelling - Disposition Referrals: [facility] [Outside] Disposition Time: 09:40 Condition: STABLE Instructions: Dependent Edema (DC) Forms: [employer] (Israeli)
--- NOTE | 2018-11-08 09:35 | US ---
Date of service: 11/08/2018 PROCEDURE: Bilateral lower extremity venous duplex Doppler. HISTORY: BLE swelling COMPARISON: None available. TECHNIQUE: Bilateral common femoral, superficial femoral, popliteal and posterior tibial veins were evaluated. Flow was assessed with color Doppler, compressibility, assessment of phasic flow and augmentation response. FINDINGS: COMMON FEMORAL VEIN: Right CFV: Unremarkable. Left CFV: Unremarkable. SUPERFICIAL FEMORAL VEIN: Right SFV: Unremarkable. Left SFV: Unremarkable. POPLITEAL VEIN: Right Popliteal: Unremarkable. Left Popliteal: Unremarkable. POSTERIOR TIBIAL VEIN: Right PTV: Unremarkable. Left PTV: Unremarkable. OTHER FINDINGS: None. IMPRESSION: No evidence of deep venous thrombosis.
[2018-11-08 09:46] VITALS: BP 138/73; PULSE 72; RESP 18
== END 2018-11-08 09:58 | disposition home or self-care (01) ==
LOC: H.ER 07:14
DX: M79.89 Other specified soft tissue disorders (principal); I10 Essential (primary) hypertension; Z87.891 Personal history of nicotine dependence

== ENCOUNTER 2018-12-15 09:40 | Emergency (ER) | payer MEDICARE, MEDICAID ==
[2018-12-15 09:45] VITALS: BP 157/80; PULSE 88; RESP 18; TEMP 97.7; O2SAT 96
[2018-12-15 09:46] VITALS: BMI 29.0
--- NOTE | 2018-12-15 10:49 | ED PDOC ---
HPI: General Adult Time Seen by Provider: 12/15/18 10:25 Chief Complaint (Nursing): Cough, Cold, Congestion History Per: Patient Additional Complaint(s): Pt. states 4 days ago she developed a cough and yesterday she developed nasal congestion. States that she is currently on chemotherapy for Breast CA and goes [place] [facility]. Pt. 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 Denies SOB, chest pain, hemoptysis, leg pain or sw elling, fever, chills, recent travel. Against Medical Advice - AMA Patient Left Against Medical Advice: The patient declines treatment and evaluation in the hospital and wishes to leave the Emergency Department. This action is against my medical advice. This decision was made with informed refusal. The patient was told that diagnostics are necessary. Explanation of the reasons why were discussed. The risks of leaving were explained to the patient and include, but are not limited to, worsening of known or currently unknown conditions, permanent disability and from undiagnosed or untreated conditions. The patient has the capacity to make this informed decision and understands my explanation of the current medical problem and risks of leaving. The patient voluntarily accepts these risks and signed an AMA form documenting our conversation. The patient was given the opportunity to ask questions and reconsider. The patient was encouraged to return to the Emergency Department at any time for further care. Past Medical History Reviewed: Historical Data, Nursing Documentation, Vital Signs Vital Signs: Last Vital Signs Temp 97.7 F 12/15/18 09:45 Pulse 88 12/15/18 09:45 Resp 18 12/15/18 09:45 BP 157/80 H 12/15/18 09:45 Pulse Ox 96 12/15/18 09:45 - Medical History PMH: Bronchitis, Gastritis, HTN, Malignancy, Peripheral Edema (Chronic BLE edema) Denies: Chronic Kidney Disease - Surgical History Other surgeries: lumpectomy - Family History Family History: States: No Known Family Hx - Home Medications Home Medications: Ambulatory Orders Medication Instructions Recorded Ketoconazole 2% Cr [Nizoral] 60 gm TOP BID #0 tube 04/16/14 Furosemide [Lasix] 20 mg PO DAILY #10 tab 07/13/14 Albuterol 0.5% [Albuterol 0.5% 2.5 mg IH Q6H PRN #3 neb 07/16/14 Inhal Shakila (2.5 mg/0.5 ml) UD] Azithromycin [Zithromax Z-Andrews] 250 mg PO DAILY #6 tab 07/16/14 Ibuprofen [Motrin] 600 mg PO Q8 PRN #6 tab 07/16/14 Polymyxin/Trimethoprim Sulfate 1 - 2 drop OS Q4 #1 bottle 08/08/14 [Polytrim Ophth Soln] Clotrimazole 1% Cream [Lotrimin 1% 15 applic EXT DAILY #1 tube 02/07/15 CREAM] Naproxen 375 mg PO Q8 PRN #21 tab 06/04/15 diaZEpam [Valium] 5 mg PO Q6 PRN #6 tab 06/04/15 Azithromycin [Zithromax] 250 mg PO DAILY #6 tab 10/13/16 Methylprednisolone [Medrol Dose 4 mg PO DAILY #1 packet 10/13/16 Pack (21 tabs)] Promethazine HCl/Codeine 5 ml PO TID PRN #30 syrup 10/13/16 [Prometh-Codein 6.25-10 mg/5 ml] Azithromycin [Zithromax] 250 mg PO DAILY #6 tab 03/09/17 Benzonatate [Tessalon Perle] 100 mg PO Q8 PRN #30 capsule 03/09/17 Azithromycin [Zithromax] 250 mg PO DAILY #6 tab 07/15/17 Tobramycin 0.3% [Tobrex 0.3% Ophth 1 appl OD QID #1 tube 07/15/17 Oint] Furosemide [Lasix] 20 mg PO QAM #7 tab 09/03/18 Naproxen [Naprosyn] 500 mg PO Q12H #20 tab 09/06/18 Albuterol Sulfate [Ventolin Hfa] 1 puff IH Q4 PRN #1 ml 09/07/18 cloNIDine [Catapres] 0.1 mg PO BID #60 tab 09/08/18 Albuterol HFA [Ventolin HFA 90 2 puff IH Q4 PRN #1 unit 09/14/18 mcg/actuation (8 g)] Azithromycin [Zithromax] 250 mg PO DAILY #6 tab 09/27/18 - Allergies Allergies/Adverse Reactions: Allergies Allergy/AdvReac Type Severity Reaction Status Date / Time EGG Allergy RASH Verified 09/14/18 08:06 latex Allergy RASH Verified 09/14/18 08:06 flu vaccine Allergy RASH Uncoded 09/14/18 08:06 Review of Systems ROS Statement: Except As Marked, All Systems Reviewed And Found Negative ENT: Positive for: Nose Congestion Respiratory: Positive for: Cough Physical Exam - Physical Exam Appears: Positive for: Well, Non-toxic, No Acute Distress Skin: Positive for: Normal Color, Warm. Negative for: Rash Eye Exam: Positive for: EOMI, Normal appearance, PERRL ENT: Positive for: TM Is/Are (non-erythematous, non-bulging b/l), Nasal Congestion (clear rhinorrhea noted). Negative for: Pharyngeal Erythema, Tonsillar Exudate, Tonsillar Swelling Cardiovascular/Chest: Positive for: Regular Rate, Rhythm Respiratory: Positive for: Normal Breath Sounds. Negative for: Accessory Muscle Use, Rales, Respiratory Distress Gastrointestinal/Abdominal: Positive for: Normal Exam, Soft. Negative for: Tenderness, Distended Back: Positive for: Normal Inspection Extremity: Negative for: Calf Tenderness (b/l) Neurological/Psych: Positive for: Awake, Alert, Oriented (x3), Mood/Affect (calm, cooperative) - ECG O2 Sat by Pulse Oximetry: 96 - Progress ED Course And Treament: Patient was offered labs, CXR, and albuterol neb treatments but refused. States she has a scheduled appointment with her oncologist tomorrow in [facility] and prefers to get evaluated there. Informed that evaluation is necessary today to rule out any emergent conditions. Pt. still refused diagnostics and treatment. Pt. signed AMA with Manisha RODRIGUEZ present as drafter seismograph then requested a food tray. Advised to stay for evaluation but still refused. Given strict instructions to follow up with her oncologist (Dr. Tan) tomorrow as scheduled. Disposition - Clinical Impression Clinical Impression: Cough, Left against medical advice - Patient ED Disposition Is Patient to be Admitted: No - Disposition Referrals: [facility] [Outside] Disposition: Against Medical Advice Disposition Time: 10:48 Condition: FAIR Additional Instructions: RETURN TO ED IMMEDIATELY FOR ANY CONCERNS OR QUESTIONS JOHN FARIA, thank you for letting us take care of you today. Your provider was Sheng Brown MD and you were treated for SOB. The emergency medical care you received today was directed at your acute symptoms. If you were prescribed any medication, please fill it and take as directed. It may take several days for your symptoms to resolve. Return to the Emergency Department if your symptoms worsen, do not improve, or if you have any other problems. Please contact your doctor or call one of the physicians/clinics you have been referred to that are listed on the Patient Visit Information form that is included in your discharge packet. Bring any paperwork you were given at discharge with you along with any medications you are taking to your follow up visit. Our treatment cannot replace ongoing medical care by a primary care provider outside of the emergency department. Thank you for allowing the [facility] team to be part of your care today. If you had an X-Ray or CT scan: A Radiologist will review the ED reading if any change in treatment is needed we will contact you. If you had a blood, urine, or wound culture: It will take several days for the r esults, if any change in treatment is needed we will contact you. If you had an STI test: It will take 48 hours for the results. Please call after 1 week if you have not heard back. Instructions: Cough, Adult (DC), Leaving Against Medical Advice Print Language: ICELANDIC
== END 2018-12-15 11:08 | disposition left against medical advice (07) ==
LOC: H.ER 09:40
DX: R05 Cough (principal); C50.919 Malignant neoplasm of unspecified site of unspecified female breast; I10 Essential (primary) hypertension; J91.0 Malignant pleural effusion